=== PATIENT | male | born 1955 | race African-American/Black ===

== ENCOUNTER 2017-06-25 12:48 | Inpatient (IN) | payer OTHER ==
[2017-06-25 14:13] VITALS: BMI 28.1
--- NOTE | 2017-06-25 15:59 | HP ---
CIWA Score - CIWA Score Nausea/Vomitin-Int. Nausea w/Dry Heave (DIARRHEA) Muscle Tremors: 4-Moderate,w/Arms Extend Anxiety: 4-Mod. Anxious/Guarded Agitation: 3 Paroxysmal Sweats: 1-Minimal Palms Moist Orientation: 0-Oriented Tacttile Disturbances: 3-Moderate Itch/Numb/Burn Auditory Disturbances: 0-None Visual Disturbances: 0-None Headache: 0-None Present CIWA-Ar Total Score: 19 Admission ROS BHS - HPI Chief Complaint: DETOX TX FOR ALCOHOL DEPENDENCE Allergies/Adverse Reactions: Allergies Allergy/AdvReac Type Severity Reaction Status Date / Time tetracycline Allergy Severe Hives Verified 06/25/17 15:12 History of Present Illness: 62 Y/O AA/MALE WITH A HX OF ALCOHOL AND HEROIN, DEPENDENCE(OPIATE NEGATIVE TOXICOLOGY TODAY) SEEKING DETOX TX. PT STATES HE WENT TO THE [facility] ER ON 06/23/10 DUE TO OVERWHELMING WITHDRAWAL SX AND ADVICED TO COME IN TO DETOX. Exam Limitations: No Limitations - Ebola screening Have you traveled outside of the country in the last 21 days: No Have you had contact with anyone from an Ebola affected area: No Have you been sick,other than usual withdrawal symptoms: No Do you have a fever: No - Review of Systems Constitutional: Chills, Night Sweats, Changes in sleep, Unintentional Wgt. Loss EENT: reports: Blurred Vision (NEEDS READING GLASSES.), Tearing, Nose Congestion , Dental Problems (MISSING TEETH/CAVITIES) Respiratory: reports: No Symptoms reported Cardiac: reports: No Symptoms Reported GI: reports: Constipated, Diarrhea, Nausea, Poor Fluid Intake, Indigestion, Abdominal cramping : reports: Frequency Musculoskeletal: reports: Joint Pain, Muscle Pain Integumentary: reports: No Symptoms Reported Neuro: reports: Tremors, Dizziness Endocrine: reports: No Symptoms Reported Hematology: reports: Anemia (IN THE PAST.) Psychiatric: reports: Orientated x3, Anxious, Depressed Other Systems: Reviewed and Negative Patient History - Patient Medical History Hx Anemia: No Hx Asthma: No Hx Chronic Obstructive Pulmonary Disease (COPD): No Hx Cancer: No Hx Cardiac Disorders: No Hx Congestive Heart Failure: No Hx Hypertension: No Hx Hypercholesterolemia: No Hx Pacemaker: No HX Cerebrovascular Accident: No Hx Seizures: Yes (HX BLACKOUTS) Hx Dementia: No Hx Diabetes: No Hx Gastrointestinal Disorders: Yes (acid reflux; NO CURRENT MED) Hx Liver Disease: No Hx Genitourinary Disorders: No Hx Sexually Transmitted Disorders: No (DENIES) Hx Renal Disease (ESRD): No Hx Thyroid Disease: No Hx Human Immunodeficiency Virus (HIV): No (NEGATIVE HX) Hx Hepatitis C: No Hx Depression: Yes (ABILIFY IN THE PAST.) Hx Suicide Attempt: No (DENIES) Hx Bipolar Disorder: Yes Hx Schizophrenia: No - Patient Surgical History Past Surgical History: No Hx Neurologic Surgery: No Hx Cataract Extraction: No Hx Cardiac Surgery: No Hx Lung Surgery: No Hx Breast Surgery: No Hx Breast Biopsy: No Hx Abdominal Surgery: No Hx Appendectomy: No Hx Cholecystectomy: No Hx Genitourinary Surgery: No Hx Orthopedic Surgery: No Anesthesia Reaction: No - PPD History Previous Implant?: Yes Documented Results: Positive w/o proof Results: CXR TBD PPD to be Administered?: No - Reproductive History Patient is a Female of Child Bearing Age (11 -55 yrs old): No (MALE) Patient : (N/A) - Smoking Cessation Smoking history: Current every day smoker Have you smoked in the past 12 months: Yes Aproximately how many cigarettes per day: 10 Hx Chewing Tobacco Use: No Initiated information on smoking cessation: Yes 'Breaking Loose' booklet given: 06/25/17 - Substance & Tx. History Hx Alcohol Use: Yes (VODKA/GIN/BEER) Hx Substance Use: Yes (HEROIN) Substance Use Type: Alcohol, Heroin - Substances Abused Heroin Route: Inhalation Frequency: 3-6 times per week Amount used: 2-3 bags Age of first use: 40 Date of Last Use: 06/23/17 Alcohol-vodka/gin/beer Route: Oral Frequency: Daily Amount used: 1-1 1/2 pts./1-6 pk. (16 oz.) Age of first use: 14 Date of Last Use: 06/25/17 Family Disease History - Family Disease History Family Disease History: Diabetes: Mother (), Heart Disease: Mother Admission Physical Exam BHS - Vital Signs Vital Signs: Vital Signs - 24 hr 06/25/17 14:09 Temperature 97.8 F Pulse Rate 63 Respiratory 18 Rate Blood Pressure 127/85 - Physical General Appearance: Yes: Moderate Distress, Irritable, Anxious HEENTM: Yes: EOMI, Normocephalic, DANIEL, Pharynx Normal, Nasal Congestion Respiratory: Yes: Chest Non-Tender, Lungs Clear, Normal Breath Sounds, No Respiratory Distress Neck: Yes: No masses,lesions,Nodules, Supple, Trachea in good position Breast: Yes: Breast Exam Deferred Cardiology: Yes: Regular Rhythm, Regular Rate, S1, S2 Abdominal: Yes: Normal Bowel Sounds, Non Tender, Soft Genitourinary: Yes: Other (N/C) Back: Yes: Within Normal Limits Musculoskeletal: Yes: full range of Motion, Gait Steady Extremities: Yes: Normal Range of Motion, Non-Tender Neurological: Yes: gas singer II-XII NML intact, Fully Oriented, Alert, Motor Strength 5/5 Integumentary: Yes: Dry, Warm Lymphatic: Yes: Within Normal Limits - Diagnostic (1) Nicotine dependence Current Visit: Yes Status: Acute Qualifiers: Nicotine product type: cigarettes Substance use status: in withdrawal Qualified Code(s): F17.213 - Nicotine dependence, cigarettes, with withdrawal; F17.213 - Nicotine dependence, cigarettes, with withdrawal (2) Alcohol dependence with uncomplicated withdrawal Current Visit: Yes Status: Acute (3) GERD (gastroesophageal reflux disease) Current Visit: Yes Status: Inactive Qualifiers: Esophagitis presence: without esophagitis Qualified Code(s): K21.9 - Gastro-esophageal reflux disease without esophagitis; K21.9 - Gastro- esophageal reflux disease without esophagitis; K21.9 - Gastro-esophageal reflux disease without esophagitis Cleared for Admission [facility] - Detox or Rehab [facility] Level of Care: Medically Managed Detox Regimen/Protocol: Librium S Breath Alcohol Content Breath Alcohol Content: 0 Urine Drug Screen - Results Drug Screen Negative: Yes
[2017-06-25] MEDS ORDERED: ACETAMINOPHEN 325 MG TABLET (FP) PO PRN (16:38)
[2017-06-25] MEDS ORDERED: IBUPROFEN 400 MG TABLET (FP) PO PRN (16:38)
[2017-06-25] MEDS ORDERED: MAGNESIUM CITRATE 300 ML BOTTLE PO PRN (16:38)
[2017-06-25] MEDS ORDERED: LOPERAMIDE HCL 2 MG CAPSULE PO PRN (16:38)
[2017-06-25] MEDS ORDERED: NICOTINE POLACRILEX 2 MG GUM BC PRN (16:38)
[2017-06-25] MEDS ORDERED: MENTHOL/PHENOL 1 EACH UD MM PRN (16:38)
[2017-06-25] MEDS ORDERED: hydrOXYzine PAMOATE 50 MG CAPSULE (FP) PO PRN (16:38)
[2017-06-25] MEDS ORDERED: guaiFENesin/D-METHORPHAN HB 10 ML UNIT-DOSE CUPS PO PRN (16:38)
[2017-06-25] MEDS ORDERED: MAG HYDROX/AL HYDROX/SIMETH 30 ML UNIT-DOSE CUP PO PRN (16:38)
[2017-06-25] MEDS ORDERED: chlordiazePOXIDE HCL 25 MG CAPSULE PO PRN (16:38)
[2017-06-25] MEDS ORDERED: chlordiazePOXIDE HCL 25 MG CAPSULE PO ONE (18:15)
[2017-06-25] MEDS: NICOTINE 14 MG/24 HOURS TOPICAL PATCH TD SCH (18:33)
[2017-06-25 22:09] LABS: URINE APPEARANCE CLEAR; URINE BILIRUBIN NEGATIVE (NEGATIVE); URINE BLOOD NEGATIVE (NEGATIVE); URINE COLOR STRAW; URINE GLUCOSE (UA) NEGATIVE (NEGATIVE); URINE KETONE NEGATIVE (NEGATIVE); URINE NITRITE NEGATIVE (NEGATIVE); URINE PROTEIN NEGATIVE (NEGATIVE); URINE UROBILINOGEN NEGATIVE mg/dL (0.2-1.0)
[2017-06-25] MEDS: cloNIDine HCL 0.1 MG TABLET PO SCH (22:16)
[2017-06-25] MEDS: THIAMINE HCL 100 MG TABLET (FP) PO SCH (22:16)
[2017-06-25] MEDS: diphenhydrAMINE HCL 50 MG CAPSULE PO PRN (22:17)
[2017-06-25] MEDS: chlordiazePOXIDE HCL 25 MG CAPSULE PO SCH (22:17)
[2017-06-26] MEDS: chlordiazePOXIDE HCL 25 MG CAPSULE PO SCH ×4 (05:42→23:02)
[2017-06-26] MEDS: CYCLOBENZAPRINE HCL 10 MG TABLET (FP) PO PRN (05:46)
--- NOTE | 2017-06-26 09:39 | CONSULT ---
[facility] Psychiatric Consult - Data Date of interview: 06/26/17 Admission source: [facility] Identifying data: Mr Styles is a 62 years old single Black male, father of a 38 years old daughter, unemployed on SSI, domiciled Substance Abuse History: Reports history of alcohol and heroin use. Refere to addiction counselor's note for more information Medical History: Significant for Alcohol-related seizure, GERD, PPD+ and a history of Herniated Disc. Smokes 10 cigarettes daily Psychiatric History: Reports that his only psychiatric admission was in 2004 to [facility]. Claims he was diagnosed with Bipolar Disorder and discharged after 2 weeks. Reports seeing a psychiatrist at [facility] and he is prescribed Abilify. He is not sure of the dosage but stopped taking it last February-March when he relapsed. He request to take only medication for insomnia during this admission. Physical/Sexual Abuse/Trauma History: Denies history of verbal, physical or sexual abuse as well as DV relationship Additional Comment: Reports history of 2 previous arrests including one felony conviction. No parole/probation currently Mental Status Exam - Mental Status Exam Alert and Oriented to: Time, Place, Person Cognitive Function: Fair Patient Appearance: Well Groomed Mood: Hopeful, Euthymic Affect: Appropriate Patient Behavior: Cooperative Speech Pattern: Clear Voice Loudness: Normal Thought Process: Intact, Goal Oriented Thought Disorder: Not Present Hallucinations: Denies Suicidal Ideation: Denies Homicidal Ideation: Denies Insight/Judgement: Poor Sleep: Poorly Appetite: Good Muscle strength/Tone: Normal Gait/Station: Normal Psychiatric Findings - Problem List ([place] 1, 2,3) (1) Bipolar disorder Current Visit: No Status: Acute (2) Substance-induced sleep disorder Current Visit: Yes Status: Acute (3) Alcohol dependence with uncomplicated withdrawal Current Visit: Yes Status: Acute (4) Opioid dependence Current Visit: No Status: Chronic (5) Cocaine dependence Current Visit: No Status: Chronic (6) Nicotine dependence Current Visit: Yes Status: Acute Qualifiers: Nicotine product type: cigarettes Substance use status: in withdrawal Qualified Code(s): F17.213 - Nicotine dependence, cigarettes, with withdrawal; F17.213 - Nicotine dependence, cigarettes, with withdrawal (7) GERD (gastroesophageal reflux disease) Current Visit: Yes Status: Inactive Qualifiers: Esophagitis presence: without esophagitis Qualified Code(s): K21.9 - Gastro-esophageal reflux disease without esophagitis; K21.9 - Gastro- esophageal reflux disease without esophagitis; K21.9 - Gastro-esophageal reflux disease without esophagitis (8) PPD positive Current Visit: Yes Status: Acute (9) Alcohol related seizure Current Visit: Yes Status: Acute - Initial Treatment Plan Initial Treatment Plan: 1) Start Ambien 10 mg po HS prn for insomnia. Benefit vs Risks of medication discussed with patient and he agreed to try it. 2) Continue inpatient detoixification
[2017-06-26 10:01] LABS: MCH 28.4 pg (25.7-33.7); MCHC 32.6 g/dl (32.0-35.9); MEAN CELL VOLUME 87.3 fl (80-96); PLATELET COUNT 158 K/MM3 (134-434); RDW 15.2 % (11.9-15.9); WHITE BLOOD COUNT 3.6 K/mm3 (4.0-10.0)
--- NOTE | 2017-06-26 10:15 | PN ---
[facility] CIWA - CIWA Score Nausea/Vomitin-No Nausea/No Vomiting Muscle Tremors: 4-Moderate,w/Arms Extend Anxiety: 4-Mod. Anxious/Guarded Agitation: 4-Moderately Restless Paroxysmal Sweats: 1-Minimal Palms Moist Orientation: 0-Oriented Tacttile Disturbances: 3-Moderate Itch/Numb/Burn Auditory Disturbances: 0-None Visual Disturbances: 0-None Headache: 0-None Present CIWA-Ar Total Score: 16 BHS Progress Note (SOAP) Subjective: ANXIETY,SWEATS,FATIGUE. Objective: 06/26/17 10:15 Vital Signs Temperature 96.5 F L 06/26/17 09:37 Pulse Rate 55 L 06/26/17 09:37 Respiratory Rate 18 06/26/17 09:37 Blood Pressure 125/81 06/26/17 09:37 O2 Sat by Pulse Oximetry (%) Laboratory Last Values WBC 3.6 K/mm3 (4.0-10.0) L 06/26/17 07:00 RBC 4.50 M/mm3 (4.00-5.60) 06/26/17 07:00 Hgb 12.8 GM/dL (11.7-16.9) 06/26/17 07:00 Hct 39.3 % (35.4-49) 06/26/17 07:00 MCV 87.3 fl (80-96) 06/26/17 07:00 MCH 28.4 pg (25.7-33.7) 06/26/17 07:00 MCHC 32.6 g/dl (32.0-35.9) 06/26/17 07:00 RDW 15.2 % (11.9-15.9) D 06/26/17 07:00 Plt Count 158 K/MM3 (134-434) 06/26/17 07:00 MPV 10.0 fl (7.5-11.1) 06/26/17 07:00 Urine Color Straw 06/25/17 21:56 Urine Appearance Clear 06/25/17 21:56 Urine pH 6.0 (5.0-8.0) 06/25/17 21:56 Urine Protein Negative (NEGATIVE) 06/25/17 21:56 Urine Glucose (UA) Negative (NEGATIVE) 06/25/17 21:56 Urine Ketones Negative (NEGATIVE) 06/25/17 21:56 Urine Blood Negative (NEGATIVE) 06/25/17 21:56 Urine Nitrite Negative (NEGATIVE) 06/25/17 21:56 Urine Bilirubin Negative (NEGATIVE) 06/25/17 21:56 Urine Urobilinogen Negative mg/dL (0.2-1.0) 06/25/17 21:56 Assessment: 06/26/17 10:15 WITHDRAWAL SX Plan: CONTINUE DETOX
[2017-06-26 10:39] LABS: ALBUMIN 3.6 g/dl (3.4-5.0); ALK PHOS 59 U/L (45-117); ANION GAP 10 (8-16); BILIRUBIN,TOTAL 0.5 mg/dL (0.2-1.0); CALCIUM 8.5 mg/dL (8.5-10.1); CO2 26 mmol/L (21-32); CREATININE 1.1 mg/dL (0.7-1.3); GLUCOSE,RANDOM 105 mg/dL (74-106); SGOT/AST 15 U/L (15-37); SGPT/ALT 28 U/L (12-78); TOT PROT 6.7 g/dl (6.4-8.2)
[2017-06-26] MEDS: PRENATAL VITAMINS W/ FOLIC ACID TABLET (FP) PO SCH (10:43)
[2017-06-26] MEDS: NICOTINE 14 MG/24 HOURS TOPICAL PATCH TD SCH (10:43)
[2017-06-26] MEDS: cloNIDine HCL 0.1 MG TABLET PO SCH ×2 (10:43→23:02)
[2017-06-26 11:08] LABS: URINE LEUK ESTERASE Negative (NEGATIVE)
[2017-06-26 12:27] LABS: HIV 1 & 2 AB NEGATIVE; HIV 1 AGp24 NEGATIVE
--- NOTE | 2017-06-26 20:30 | EKG ---
Test Reason : Blood Pressure : / mmHG Vent. Rate : 066 BPM Atrial Rate : 066 BPM P-R Int : 144 ms QRS Dur : 092 ms QT Int : 428 ms P-R-T Axes : 072 066 063 degrees QTc Int : 448 ms NORMAL SINUS RHYTHM POSSIBLE LEFT ATRIAL ENLARGEMENT BORDERLINE ECG NO PREVIOUS ECGS AVAILABLE REPEAT EKG IF CLINICALLY INDICATED Confirmed by TAD NUÑEZ MD ([id number]) on 06/26/2017 8:30:20 PM Referred By: Confirmed By:TAD NUÑEZ MD
[2017-06-26] MEDS: THIAMINE HCL 100 MG TABLET (FP) PO SCH (23:02)
[2017-06-27] MEDS: chlordiazePOXIDE HCL 25 MG CAPSULE PO SCH ×3 (05:39→16:48)
[2017-06-27] MEDS: PRENATAL VITAMINS W/ FOLIC ACID TABLET (FP) PO SCH (10:50)
[2017-06-27] MEDS: cloNIDine HCL 0.1 MG TABLET PO SCH ×2 (10:50→22:10)
[2017-06-27] MEDS: NICOTINE 14 MG/24 HOURS TOPICAL PATCH TD SCH (10:51)
[2017-06-27] MEDS: MAGNESIUM HYDROX 2400MG/30ML ORAL SUSPENSION 30 ML CUP PO PRN ×2 (10:51→19:18)
[2017-06-27] MEDS ORDERED: ONDANSETRON *ODT* 4 MG TABLET SL PRN (12:20)
--- NOTE | 2017-06-27 13:10 | PN ---
[facility] CIWA - CIWA Score Nausea/Vomitin-No Nausea/No Vomiting Muscle Tremors: 4-Moderate,w/Arms Extend Anxiety: 3 Agitation: 2 Paroxysmal Sweats: 3 Orientation: 2-Disoriented Date<2 days Tacttile Disturbances: 2-Mild Itch/Numbness/Burn Auditory Disturbances: 2-Mild Harshness/Frighten Visual Disturbances: 0-None Headache: 0-None Present CIWA-Ar Total Score: 18 S Progress Note (SOAP) Subjective: Constipation, Sweating, Chills, Body Aches. Objective: PT. A & O X 2 (DISORIENTED ABOUT DAY / DATE). NO ACUTE DISTRESS. 06/27/17 13:11 Vital Signs Temperature 98.1 F 06/27/17 09:45 Pulse Rate 56 L 06/27/17 09:45 Respiratory Rate 18 06/27/17 09:45 Blood Pressure 119/77 06/27/17 09:45 O2 Sat by Pulse Oximetry (%) Laboratory Tests 06/25/17 06/26/17 06/26/17 21:56 07:00 07:00 WBC 3.6 L RBC 4.50 Hgb 12.8 Hct 39.3 MCV 87.3 MCH 28.4 MCHC 32.6 RDW 15.2 D Plt Count 158 MPV 10.0 Sodium 142 Potassium 3.6 Chloride 106 Carbon Dioxide 26 Anion Gap 10 BUN 7 D Creatinine 1.1 D Creat Clearance w eGFR > 60 Random Glucose 105 D Calcium 8.5 Total Bilirubin 0.5 D AST 15 ALT 28 D Alkaline Phosphatase 59 Total Protein 6.7 Albumin 3.6 Urine Color Straw Urine Appearance Clear Urine pH 6.0 Ur Specific [place] 1.015 Urine Protein Negative Urine Glucose (UA) Negative Urine Ketones Negative Urine Blood Negative Urine Nitrite Negative Urine Bilirubin Negative Urine Urobilinogen Negative Ur Leukocyte Esterase Negative RPR Titer HIV 1&2 Antibody Screen HIV P24 Antigen 06/26/17 06/26/17 07:00 08:00 WBC RBC Hgb Hct MCV MCH MCHC RDW Plt Count MPV Sodium Potassium Chloride Carbon Dioxide Anion Gap BUN Creatinine Creat Clearance w eGFR Random Glucose Calcium Total Bilirubin AST ALT Alkaline Phosphatase Total Protein Albumin Urine Color Urine Appearance Urine pH Ur Specific [place] Urine Protein Urine Glucose (UA) Urine Ketones Urine Blood Urine Nitrite Urine Bilirubin Urine Urobilinogen Ur Leukocyte Esterase RPR Titer Nonreactive HIV 1&2 Antibody Screen Negative HIV P24 Antigen Negative LABS NOTED. Assessment: 06/27/17 13:12 WITHDRAWAL SYMPTOMS. Plan: CONTINUE DETOX. PRN ZOFRAN SL FOR NAUSEA / VOMITING. PRN MOM FOR CONSTIPATION. INCREASE DAILY PO FLUID INTAKE.
[2017-06-27] MEDS: chlordiazePOXIDE 5 MG CAPSULE PO SCH (22:10)
[2017-06-27] MEDS: THIAMINE HCL 100 MG TABLET (FP) PO SCH (22:10)
[2017-06-27] MEDS: diphenhydrAMINE HCL 50 MG CAPSULE PO PRN (22:11)
[2017-06-28] MEDS: chlordiazePOXIDE 5 MG CAPSULE PO SCH ×3 (05:42→16:49)
[2017-06-28] MEDS: cloNIDine HCL 0.1 MG TABLET PO SCH ×2 (10:57→22:13)
[2017-06-28] MEDS: PRENATAL VITAMINS W/ FOLIC ACID TABLET (FP) PO SCH (10:57)
[2017-06-28] MEDS: NICOTINE 14 MG/24 HOURS TOPICAL PATCH TD SCH (10:57)
[2017-06-28] MEDS: DOCUSATE SODIUM 100 MG CAPSULE (FP) PO SCH ×2 (10:59→22:13)
[2017-06-28] MEDS: SENNOSIDES 8.6MG TABLET (FP) PO SCH ×2 (10:59→22:12)
--- NOTE | 2017-06-28 12:36 | PN ---
BHS Progress Note (SOAP) Subjective: Constipation, Body Aches, Sweating, H/A, Interrupted Sleep. Objective: PT. A & O X 3, OBSERVED AMBULATING ON UNIT. NO ACUTE DISTRESS. 06/28/17 12:35 Vital Signs Temperature 98.8 F 06/28/17 09:08 Pulse Rate 77 06/28/17 09:08 Respiratory Rate 20 06/28/17 09:08 Blood Pressure 119/83 06/28/17 09:08 O2 Sat by Pulse Oximetry (%) Laboratory Tests 06/25/17 06/26/17 06/26/17 21:56 07:00 07:00 WBC 3.6 L RBC 4.50 Hgb 12.8 Hct 39.3 MCV 87.3 MCH 28.4 MCHC 32.6 RDW 15.2 D Plt Count 158 MPV 10.0 Sodium 142 Potassium 3.6 Chloride 106 Carbon Dioxide 26 Anion Gap 10 BUN 7 D Creatinine 1.1 D Creat Clearance w eGFR > 60 Random Glucose 105 D Calcium 8.5 Total Bilirubin 0.5 D AST 15 ALT 28 D Alkaline Phosphatase 59 Total Protein 6.7 Albumin 3.6 Urine Color Straw Urine Appearance Clear Urine pH 6.0 Ur Specific [place] 1.015 Urine Protein Negative Urine Glucose (UA) Negative Urine Ketones Negative Urine Blood Negative Urine Nitrite Negative Urine Bilirubin Negative Urine Urobilinogen Negative Ur Leukocyte Esterase Negative RPR Titer HIV 1&2 Antibody Screen HIV P24 Antigen 06/26/17 06/26/17 07:00 08:00 WBC RBC Hgb Hct MCV MCH MCHC RDW Plt Count MPV Sodium Potassium Chloride Carbon Dioxide Anion Gap BUN Creatinine Creat Clearance w eGFR Random Glucose Calcium Total Bilirubin AST ALT Alkaline Phosphatase Total Protein Albumin Urine Color Urine Appearance Urine pH Ur Specific [place] Urine Protein Urine Glucose (UA) Urine Ketones Urine Blood Urine Nitrite Urine Bilirubin Urine Urobilinogen Ur Leukocyte Esterase RPR Titer Nonreactive HIV 1&2 Antibody Screen Negative HIV P24 Antigen Negative LABS NOTED. Assessment: 06/28/17 12:36 WITHDRAWAL SYMPTOMS. Plan: CONTINUE DETOX.
[2017-06-28] MEDS: P-EPHED 60MG/TRIPROLIDI 2.5MG TABLET PO PRN (15:12)
[2017-06-28] MEDS: chlordiazePOXIDE HCL 10 MG CAPSULE PO SCH (22:12)
[2017-06-28] MEDS: diphenhydrAMINE HCL 50 MG CAPSULE PO PRN (22:13)
[2017-06-28] MEDS: THIAMINE HCL 100 MG TABLET (FP) PO SCH (22:13)
[2017-06-29] MEDS: chlordiazePOXIDE HCL 10 MG CAPSULE PO SCH (05:23)
[2017-06-29] MEDS: CYCLOBENZAPRINE HCL 10 MG TABLET (FP) PO PRN (05:24)
[2017-06-29] MEDS: P-EPHED 60MG/TRIPROLIDI 2.5MG TABLET PO PRN (05:38)
[2017-06-29 06:08] VITALS: BP 138/86; PULSE 48; TEMP 98
--- NOTE | 2017-06-29 18:51 | DS ---
[facility] Detox Discharge Summary Admission Date: 06/25/17 Discharge Date: 06/29/17 - History Present History: Alcohol Dependence, Cocaine Dependence Additional Comments: PATIENT IS GOING TO OUTPATIENT DAY PROGRAM (UNABLE TO RECALL NAME AT THIS TIME) IN [facility]. PATIENT WAS DISCHARGED FROM DETOX UNIT IN STABLE MEDICAL CONDITION. Pertinent Past History: Nicotine Dependence, Bipolar Disorder, Depression, History of Seizues (ETOH- Related), History of Positive PPD, GERD. - Physical Exam Results Vital Signs: Vital Signs Temperature 98 F 06/29/17 06:07 Pulse Rate 48 L 06/29/17 06:07 Respiratory Rate 16 06/29/17 06:07 Blood Pressure 138/86 06/29/17 06:07 O2 Sat by Pulse Oximetry (%) Pertinent Admission Physical Exam Findings: WITHDRAWAL SYMPTOMS. Laboratory Tests 06/25/17 06/26/17 06/26/17 21:56 07:00 07:00 WBC 3.6 L RBC 4.50 Hgb 12.8 Hct 39.3 MCV 87.3 MCH 28.4 MCHC 32.6 RDW 15.2 D Plt Count 158 MPV 10.0 Sodium 142 Potassium 3.6 Chloride 106 Carbon Dioxide 26 Anion Gap 10 BUN 7 D Creatinine 1.1 D Creat Clearance w eGFR > 60 Random Glucose 105 D Calcium 8.5 Total Bilirubin 0.5 D AST 15 ALT 28 D Alkaline Phosphatase 59 Total Protein 6.7 Albumin 3.6 Urine Color Straw Urine Appearance Clear Urine pH 6.0 Ur Specific [place] 1.015 Urine Protein Negative Urine Glucose (UA) Negative Urine Ketones Negative Urine Blood Negative Urine Nitrite Negative Urine Bilirubin Negative Urine Urobilinogen Negative Ur Leukocyte Esterase Negative RPR Titer HIV 1&2 Antibody Screen HIV P24 Antigen 06/26/17 06/26/17 07:00 08:00 WBC RBC Hgb Hct MCV MCH MCHC RDW Plt Count MPV Sodium Potassium Chloride Carbon Dioxide Anion Gap BUN Creatinine Creat Clearance w eGFR Random Glucose Calcium Total Bilirubin AST ALT Alkaline Phosphatase Total Protein Albumin Urine Color Urine Appearance Urine pH Ur Specific [place] Urine Protein Urine Glucose (UA) Urine Ketones Urine Blood Urine Nitrite Urine Bilirubin Urine Urobilinogen Ur Leukocyte Esterase RPR Titer Nonreactive HIV 1&2 Antibody Screen Negative HIV P24 Antigen Negative LABS NOTED. - Treatment Hospital Course: Detox Protocol Followed, Detoxed Safely, Responded well, Discharged Condition Good Patient has Accepted a Rehab Referral to: NO. PT. GOING TO OUTPATIENT DAY PROGRAM IN [facility]. - Medication Discharge Medications: Ambulatory Orders Fluticasone Prop 0.05% Nasal [Flonase -] 1 spray NS DAILY #1 bot 06/29/17 - Diagnosis (1) Alcohol dependence with uncomplicated withdrawal Status: Acute (2) Nicotine dependence Status: Acute Qualifiers: Nicotine product type: cigarettes Substance use status: in withdrawal Qualified Code(s): F17.213 - Nicotine dependence, cigarettes, with withdrawal; F17.213 - Nicotine dependence, cigarettes, with withdrawal (3) Alcohol related seizure Status: Acute (4) Bipolar disorder Status: Acute Qualifiers: Active/Remission status: remission status unspecified Qualified Code (s): F31.9 - Bipolar disorder, unspecified; F31.9 - Bipolar disorder, unspecified; F31.9 - Bipolar disorder, unspecified; F31.9 - Bipolar disorder, unspecified (5) PPD positive Status: Chronic (6) Substance-induced sleep disorder Status: Acute (7) Cocaine dependence Status: Chronic Qualifiers: Substance use status: uncomplicated Qualified Code(s): F14.20 - Cocaine dependence, uncomplicated; F14.20 - Cocaine dependence, uncomplicated; F14.20 - Cocaine dependence, uncomplicated (8) Opioid dependence Status: Chronic Qualifiers: Substance use status: uncomplicated Qualified Code(s): F11.20 - Opioid dependence, uncomplicated; F11.20 - Opioid dependence, uncomplicated; F11.20 - Opioid dependence, uncomplicated (9) GERD (gastroesophageal reflux disease) Status: Chronic Qualifiers: Esophagitis presence: esophagitis presence not specified Qualified Code(s): K21.9 - Gastro-esophageal reflux disease without esophagitis; K21.9 - Gastro-esophageal reflux disease without esophagitis; K21.9 - Gastro-esophageal reflux disease without esophagitis - AMA Did Patient Leave Against Medical Advice: No
== END 2017-06-29 09:20 | disposition home or self-care (01) | DRG 773 ==
LOC: YASAS 12:48 → Y3N 17:39
PROVIDERS: ADMIT Internal Medicine; ATTEND Internal Medicine
PROC: HZ2ZZZZ Detoxification Services for Substance Abuse Treatment (ICD-10-PCS; principal; 2017-06-25)
DX: F10.230 Alcohol dependence with withdrawal, uncomplicated (principal); F11.20 Opioid dependence, uncomplicated; F14.20 Cocaine dependence, uncomplicated; F17.213 Nicotine dependence, cigarettes, with withdrawal; F31.9 Bipolar disorder, unspecified; F19.282 Other psychoactive substance dependence with psychoactive substance-induced sleep disorder; K21.9 Gastro-esophageal reflux disease without esophagitis; R76.11 Nonspecific reaction to tuberculin skin test without active tuberculosis; Z86.69 Personal history of other diseases of the nervous system and sense organs; Z88.1 Allergy status to other antibiotic agents
CPT/HCPCS: 36415; 71020-TC; 80053; 81003; 85027; 86593; 87389; 93005; 93010

== ENCOUNTER 2019-10-07 14:55 | Inpatient (IN) | payer OTHER ==
--- NOTE | 2019-10-07 17:04 | PDOC ---
History of Present Illness - General Chief Complaint: Chest Pain Stated Complaint: ABNORMAL EKG Time Seen by Provider: 10/07/19 16:36 - History of Present Illness Initial Comments: Mr. Styles is a 64M hx of polysubstance abuse, sent in today from [facility] for abnormal EKG findings. Reports that he took $120 worth of crack cocaine this morning and drank numerous beers and a pint of vodka before presenting to [facility] for detox. He is not reporting any complaints. Denies chest pain, denies shortness of breath. Denies abdominal pain. Denies diaphoresis. Denies headache. Denies dysuria or diarrhea. He has been using crack cocaine and alcohol numerous times intermittently throughout his life. Meds: none Past History - Past Medical History Allergies/Adverse Reactions: Allergies Allergy/AdvReac Type Severity Reaction Status Date / Time tetracycline Allergy Severe Hives Verified 10/07/19 16:03 Home Medications: Ambulatory Orders NK [No Known Home Medication] 10/07/19 Anemia: Yes Asthma: No Cancer: No Cardiac Disorders: No CVA: No COPD: No CHF: No Dementia: No Diabetes: No GI Disorders: No Disorders: No HTN: No Hypercholesterolemia: No Kidney Stones: No Liver Disease: No Psychiatric Problems: Yes Seizures: No Thyroid Disease: No - Surgical History Abdominal Surgery: No Appendectomy: No Cardiac Surgery: No Cholecystectomy: No Lung Surgery: No Neurologic Surgery: No Orthopedic Surgery: No - Reproductive History Testicular Surgery: No - Psycho Social/Smoking Cessation Hx Smoking History: Current every day smoker Have you smoked in the past 12 months: Yes Number of Cigarettes Smoked Daily: 10 Information on smoking cessation initiated: No 'Breaking Loose' booklet given: 10/07/19 Hx Alcohol Use: Yes Drug/Substance Use Hx: Yes Substance Use Type: Alcohol, Cocaine, Heroin Hx Substance Use Treatment: No Cardiac Specific PMH - Complaint Specific PMHX Pacemaker: No Review of Systems - Review of Systems Comments:: GENERAL/CONSTITUTIONAL: No fever or chills. No weakness._ HEAD, EYES, EARS, NOSE AND THROAT: No change in vision. No change in hearing. No sore throat._ CARDIOVASCULAR: No chest pain or shortness of breath_ RESPIRATORY: Denies cough, hemoptysis_ GASTROINTESTINAL: No nausea, vomiting, diarrhea or constipation._ GENITOURINARY: No dysuria, frequency, or change in urination._ MUSCULOSKELETAL: No joint or muscle swelling or pain. No neck or back pain._ SKIN: No rash_ NEUROLOGIC: No headache, vertigo, loss of consciousness, or change in strength/ sensation._ ENDOCRINE: No increased thirst. No abnormal weight change_ HEMATOLOGIC/LYMPHATIC: No anemia, easy bleeding, or history of blood clots._ ALLERGIC/IMMUNOLOGIC: No hives or skin allergy._ *Physical Exam - Vital Signs Last Vital Signs Temp Pulse Resp BP Pulse Ox 98.3 F 59 L 19 162/97 99 10/07/19 19:50 10/07/19 19:50 10/07/19 19:50 10/07/19 19:50 10/07/19 19:50 - Physical Exam GENERAL: Awake, alert, and oriented to person/place/time, in no acute distress_ HEAD: No signs of trauma, normoc ephalic, atraumatic _ EYES: PERRLA, EOMI, sclera anicteric, conjunctiva clear_ ENT: Hearing grossly normal, nares patent, oropharynx clear without exudates. No uvular deviation. Moist mucosa_ NECK: Normal ROM, supple, no lymphadenopathy, JVD, or masses_ LUNGS: No distress, speaks in full sentences, clear to auscultation bilaterally _ HEART: Regular rate and rhythm, normal S1 and S2, no murmurs appreciated, peripheral pulses normal and equal bilaterally._ ABDOMEN: Soft, nontender, normoactive bowel sounds. No guarding, no rebound. No masses_ EXTREMITIES: Normal inspection, Normal range of motion, no edema. No clubbing or cyanosis_ NEUROLOGICAL: Cranial nerves II through XII grossly intact. Normal speech, normal gait, no focal sensorimotor deficits _ SKIN: Warm, Dry, normal turgor, no rashes or lesions noted_ ED Treatment Course - LABORATORY CBC & Chemistry Diagram: 10/07/19 16:30 10/07/19 16:30 - ADDITIONAL ORDERS Additional order review: Laboratory Results 10/07/19 16:30 Sodium 136 Potassium 4.4 Chloride 104 Carbon Dioxide 27 Anion Gap 5 L BUN 13.3 Creatinine 1.0 Est GFR (CKD-EPI)AfAm 93.08 Est GFR (CKD-EPI)NonAf 80.31 Random Glucose 78 Calcium 8.7 Total Bilirubin 0.3 AST 43 H ALT 37 Alkaline Phosphatase 83 Troponin I < 0.02 Total Protein 7.3 Albumin 3.8 10/07/19 16:30 RBC 4.65 MCV 89.2 MCHC 33.7 RDW 14.3 MPV 8.8 D Neutrophils % 30.3 L Lymphocytes % 51.2 H Monocytes % 12.1 H Eosinophils % 6.0 H Basophils % 0.4 - Medications Given in the ED: ED Medications Discontinued Medications Generic Name Dose Route Start Last Admin Trade Name Izaiahq PRN Reason Stop Dose Admin Aspirin 325 mg 10/07/19 18:08 10/07/19 19:18 Ecotrin - PO 10/07/19 18:09 325 mg ONCE ONE Administration Medical Decision Making - Medical Decision Making 10/07/19 17:09 EKG shows NSR, 65 bpm, no ST elevation, QTc 451. Biphasic T waves and Wellens syndrome is seen on V2 and V3 on prior EKG this afternoon at [facility] at 13:28 with improvement on EKG done at bedside in the ED. 10/07/19 17:14 64M detox-ing from cocaine and ETOH presenting today for abnormal EKG findings. -cbc, cmp, trop -ekg, cxr 10/07/19 17:19 CXR shows no acute intra thoracic pathology. Labs reviewed. Laboratory Tests 10/07/19 10/07/19 16:30 16:30 WBC 2.6 L RBC 4.65 Hgb 14.0 Hct 41.5 MCV 89.2 MCH 30.0 MCHC 33.7 RDW 14.3 Plt Count 145 MPV 8.8 D Absolute Neuts (auto) 0.8 L Neutrophils % 30.3 L Lymphocytes % 51.2 H Monocytes % 12.1 H Eosinophils % 6.0 H Basophils % 0.4 Nucleated RBC % 0 Sodium 136 Potassium 4.4 Chloride 104 Carbon Dioxide 27 Anion Gap 5 L BUN 13.3 Creatinine 1.0 Est GFR (CKD-EPI)AfAm 93.08 Est GFR (CKD-EPI)NonAf 80.31 Random Glucose 78 Calcium 8.7 Total Bilirubin 0.3 AST 43 H ALT 37 Alkaline Phosphatase 83 Troponin I < 0.02 Total Protein 7.3 Albumin 3.8 10/07/19 21:05 D/w Dr. Anthony who accepts the patient for admission. Discharge - Discharge Information Problems reviewed: Yes Clinical Impression/Diagnosis: Abnormal EKG Condition: Stable - Admission Yes - Follow up/Referral - Patient Discharge Instructions - Post Discharge Activity
[2019-10-07 17:12] LABS: BASO % 0.4 % (0-2.0); HEMATOCRIT 41.5 % (35.4-49); LYMPH % 51.2 % (8-40); MCHC 33.7 g/dl (32.0-35.9); MEAN CELL VOLUME 89.2 fl (80-96); MEAN PLT VOLUME 8.8 fl (7.5-11.1); MONO % 12.1 % (3.8-10.2); NEUT % 30.3 % (42.8-82.8); PLATELET COUNT 145 K/MM3 (134-434); RBC 4.65 M/mm3 (4.00-5.60); RDW 14.3 % (11.9-15.9); WHITE BLOOD COUNT 2.6 K/mm3 (4.0-10.0)
[2019-10-07 18:02] LABS: ALBUMIN 3.8 g/dl (3.4-5.0); ALK PHOS 83 U/L (45-117); ANION GAP 5 MMOL/L (8-16); BILIRUBIN,TOTAL 0.3 mg/dL (0.2-1); BLOOD UREA NITROGEN 13.3 mg/dL (7-18); CALCIUM 8.7 mg/dL (8.5-10.1); CHLORIDE 104 mmol/L (98-107); CO2 27 mmol/L (21-32); GLUCOSE,RANDOM 78 mg/dL (74-106); POTASSIUM 4.4 mmol/L (3.5-5.1); SGOT/AST 43 U/L (15-37); SGPT/ALT 37 U/L (13-61); SODIUM 136 mmol/L (136-145); TOT PROT 7.3 g/dl (6.4-8.2)
[2019-10-07] MEDS ORDERED: ASPIRIN 325 MG ENTERIC COATED TABLET (FP) PO ONE (18:08)
--- NOTE | 2019-10-07 18:51 | PDOC ---
Documentation entered by Juan Ruiz SCRIBE, acting as scribe for Miriam Santos MD. Miriam Santos MD: This documentation has been prepared by the Joseph cordero Nirvannie, SCRIBE, under my direction and personally reviewed by me in its entirety. I confirm that the documentation accurately reflects all work, treatment, procedures, and medical decision making performed by me. Attending Attestation - Resident Resident Name: [email or web address] - ED Attending Attestation I have performed the following: I have examined & evaluated the patient, The case was reviewed & discussed with the resident, I agree w/resident's findings & plan, Exceptions are as noted - HPI HPI: 10/07/19 18:02 The patient is a 64 year old male, with a significant past medical history of HTN, Anemia, Depression, and Polysubstance Abuse (alcohol, cocaine, heroin), who presents to the emergency department via EMS from [facility] with abnormal EKG findings. As per patient, he drank an unknown amount of beer, a pint of vodka, and crack cocaine (approx $120 worth) then went to [facility] for detox. Per [facility] his EKG depicted showed abnormal t waves. He denies any recent fevers, chills, headache or dizziness. He denies any recent nausea, vomit, diarrhea or constipation. He denies any recent chest pain or shortness of breath. He denies any recent dysuria, frequency, urgency or hematuria. Allergies: Tetracycline Past surgical history: None reported. Social History: Polysubstance Abuse (alcohol, cocaine, heroin) - Physicial Exam PE: 10/07/19 18:48 Agree with resident exam - Medical Decision Making 10/07/19 18:49 64-year-old male with a history of polysubstance abuse presents the emergency department with abnormal EKG. patient used cocaine this morning. EKG consistent with Wellens EKG, concerning for vasospasm. Repeat EKG is stable in the emergency department. There was questionable report of chest pain, however patient currently denies. Will admit the patient for ACS work-up versus possible vasospasm. Heart Score/ECG Review #1 10/07/19 18:49 Twelve-lead EKG was performed and reviewed by me. Normal sinus rhythm, rate 65. Normal axis and intervals. No ST elevations. Deep biphasic T waves in V2 and V3 which are new compared to EKG from 2017.
[2019-10-07] MEDS ORDERED: ASPIRIN COATED 81 MG TABLET.EC ONE (19:10)
[2019-10-07] MEDS ORDERED: FOLIC ACID INJECTION - 1 MG, THIAMINE HCL 100 MG, MULTIVIT INJECTION ADULT 10 ML in SOD... IVPB ONE (21:07)
[2019-10-07] MEDS ORDERED: chlordiazePOXIDE HCL 10 MG CAPSULE PO PRN (21:08)
--- NOTE | 2019-10-07 21:19 | PN ---
Teaching Attending Note Name of Resident: Bin Anthony ATTENDING PHYSICIAN STATEMENT I saw and evaluated the patient. I reviewed the resident's note and discussed the case with the resident. I agree with the resident's findings and plan as documented. SUBJECTIVE: This is a 64 year old man with a history of bipolar disorder, substance abuse (alcohol and cocaine), GERD, chronic back pain secondary to herniated disc who was sent to the ED from [facility] because of an abnormal EKG. He denies chest pain, palpitations, SOB. He complains of body aches, chills , and cough productive of green/yellow sputum. His last drink was this morning. He last used crack this morning. OBJECTIVE: Vital Signs Period Temp Pulse Resp BP Sys/Lei Pulse Ox Last 24 Hr 98.2 F-98.3 F 59-68 17-19 157-162/97-107 99-100 HEART: S1S2, RRR LUNGS: Clear ABDOMEN: Soft, non-tender, non-distended, normal BS EXTREMITIES: No edema Laboratory Tests 10/07/19 10/07/19 16:30 16:30 WBC 2.6 L RBC 4.65 Hgb 14.0 Hct 41.5 MCV 89.2 MCH 30.0 MCHC 33.7 RDW 14.3 Plt Count 145 MPV 8.8 D Absolute Neuts (auto) 0.8 L Neutrophils % 30.3 L Lymphocytes % 51.2 H Monocytes % 12.1 H Eosinophils % 6.0 H Basophils % 0.4 Nucleated RBC % 0 Sodium 136 Potassium 4.4 Chloride 104 Carbon Dioxide 27 Anion Gap 5 L BUN 13.3 Creatinine 1.0 Est GFR (CKD-EPI)AfAm 93.08 Est GFR (CKD-EPI)NonAf 80.31 Random Glucose 78 Calcium 8.7 Total Bilirubin 0.3 AST 43 H ALT 37 Alkaline Phosphatase 83 Troponin I < 0.02 Total Protein 7.3 Albumin 3.8 Home Medications Medication Instructions Recorded NK [No Known Home Medication] 10/07/19 ASSESSMENT AND PLAN: This is a 64 year old man with a history of bipolar disorder, substance abuse ( alcohol and cocaine), GERD, chronic back pain secondary to herniated disc who was sent to the ED from [facility] because of an abnormal EKG with chills, cough , and body aches. 1. Abnormal EKG - EKG shows biphasic T waves in V1-V4 - Patient is asymptomatic - Troponin negative x 1 - Admit to telemetry - Serial troponins and EKGs - Start aspirin, Lipitor - Will hold beta delio secondary to cocaine use - Echocardiogram - Cardiology consult 2. Possible viral syndrome - Has productive cough, chills, myalgias and thinks he has had fevers - Acetaminophen, ibuprofen as needed - Check influenza 3. Neutropenia - Has chronic leukopenia - Possibly secondary to alcohol-induced bone marrow suppression, viral syndrome 4. Continuous alcohol dependence - Thiamine, folic acid, multivitamin - Start Librium detox 5. Cocaine abuse 6. Bipolar disorder 7. GERD 8. Chronic low back pain secondary to herniated disc - Uses ibuprofen as needed
[2019-10-07] MEDS ORDERED: chlordiazePOXIDE HCL 25 MG CAPSULE ONE (21:56)
[2019-10-07] MEDS: chlordiazePOXIDE HCL 25 MG CAPSULE PO SCH (21:58)
--- NOTE | 2019-10-07 23:21 | HP ---
CHIEF COMPLAINT: brought from [facility] for EKG abnormalities PCP: none HISTORY OF PRESENT ILLNESS: Bo Styles is a 64 year old male with a past medical history of polysubstance abuse (alcohol, cocaine), GERD, depression, bipolar, disc herniation, who presents from [facility] for EKG abnormalities noting biphasic T waves in V2, V3. Patient states that his only complaints are chronic back pain due to a slipped disc, myalgias, pain on his left toe (stated he had a previous fracture in that area), cough, and intermittent chills. Notes the cough is productive of green/yellow phlegm and has been present for greater than a week. He denies chest pain or pressure, shortness of breath, diaphoresis, back pain, abdominal pain, n/v/c/d, neck pain, headaches, visual changes, dizziness, lightheadedness. Denies history of cardiac issues. Stated that his last crack cocaine use was the morning of admission prior to presenting to [facility]. Additionally, denies dysuria, hematuria, frequency, urgency. Denies sick contacts or recent travel. ER course was notable for: (1) WBC 2.6, neut 0.8, AST 43 (2) EKG at this facility noting inverted p waves in V1, V2, inverted T waves in V1, V2, biphasic T wave in V3, no other ST segment changes, Qtc 451 (3) troponins negative x2 (4) CXR with no acute pathology Recent Travel: denies PAST MEDICAL HISTORY: as above PAST SURGICAL HISTORY: denies Social History: Smoking: endorses smoking 1/2 ppd for "forever" Alcohol: 1/2 to 1 pint of vodka daily, 6-16oz beers daily Drugs: inhalation use of crack cocaine 120$ worth, occasional marijuana and heroin use Not currently working. Allergies tetracycline Allergy (Severe, Verified 10/07/19 16:03) Hives HOME MEDICATIONS: Home Medications Medication Instructions Recorded NK [No Known Home Medication] 10/07/19 REVIEW OF SYSTEMS CONSTITUTIONAL: chills Absent: fever, diaphoresis, generalized weakness, malaise, loss of appetite, weight change HEENT: nasal congestion Absent: rhinorrhea, throat pain, throat swelling, difficulty swallowing, visual changes CARDIOVASCULAR: Absent: chest pain, syncope, palpitations, irregular heart rate, lightheadedness , peripheral edema RESPIRATORY: cough productive of yellow/green phlegm Absent: shortness of breath, dyspnea with exertion, orthopnea, wheezing, stridor, hemoptysis GASTROINTESTINAL: Absent: abdominal pain, abdominal distension, nausea, vomiting, diarrhea, constipation, melena, hematochezia GENITOURINARY: Absent: dysuria, frequency, urgency, hesitancy, hematuria, flank pain MUSCULOSKELETAL: myalgia, back pain, L 4th toe pain Absent: arthralgia, joint swelling, neck pain SKIN: Absent: rash, itching, pallor HEMATOLOGIC/IMMUNOLOGIC: Absent: easy bleeding, easy bruising, lymphadenopathy, frequent infections ENDOCRINE: Absent: unexplained weight gain, unexplained weight loss, heat intolerance, cold intolerance NEUROLOGIC: Absent: headache, focal weakness or paresthesias, dizziness, unsteady gait, seizure, mental status changes, bladder or bowel incontinence PSYCHIATRIC: Absent: anxiety, depression, suicidal or homicidal ideation, hallucinations. PHYSICAL EXAMINATION Vital Signs - 24 hr 10/07/19 10/07/19 15:52 19:50 Temperature 98.2 F 98.3 F Pulse Rate 68 Pulse Rate [ 59 L Apical] Respiratory 17 19 Rate Blood Pressure 157/107 H Blood Pressure 162/97 [Left Arm] O2 Sat by Pulse 100 99 Oximetry (%) GENERAL: Awake, alert, and fully oriented, in no acute distress. HEAD: Normal with no signs of trauma. EYES: Pupils equal, round and reactive to light, extraocular movements intact, sclera anicteric, conjunctiva clear. EARS, NOSE, THROAT: Oropharynx clear without exudates. Moist mucous membranes. NECK: Normal range of motion, supple without lymphadenopathy, JVD. LUNGS: Breath sounds equal, clear to auscultation bilaterally. No wheezes, and no crackles. No accessory muscle use. HEART: Regular rate and rhythm, normal S1 and S2 with prominent systolic ejection murmur at the R 5th intercostal space at the sternal junction ABDOMEN: Soft, nontender, not distended, normoactive bowel sounds, no guarding, no rebound, no masses. MUSCULOSKELETAL: Normal range of motion at all joints. Tenderness to palpation of the L 4th toe. UPPER EXTREMITIES: 2+ pulses, warm, well-perfused. No cyanosis. No clubbing. No peripheral edema. LOWER EXTREMITIES: 2+ pulses, warm, well-perfused. No calf tenderness. No peripheral edema. NEUROLOGICAL: Cranial nerves II-XII intact. 5/5 muscle strength upper and lower extremities bilaterally. PSYCHIATRIC: Cooperative. Good eye contact. Upset mood. SKIN: Warm, dry, normal turgor, no rashes or lesions noted, normal capillary refill. Laboratory Results - last 24 hr 10/07/19 10/07/19 10/07/19 16:30 16:30 22:10 WBC 2.6 L RBC 4.65 Hgb 14.0 Hct 41.5 MCV 89.2 MCH 30.0 MCHC 33.7 RDW 14.3 Plt Count 145 MPV 8.8 D Absolute Neuts (auto) 0.8 L Neutrophils % 30.3 L Lymphocytes % 51.2 H Monocytes % 12.1 H Eosinophils % 6.0 H Basophils % 0.4 Nucleated RBC % 0 Sodium 136 Potassium 4.4 Chloride 104 Carbon Dioxide 27 Anion Gap 5 L BUN 13.3 Creatinine 1.0 Est GFR (CKD-EPI)AfAm 93.08 Est GFR (CKD-EPI)NonAf 80.31 Random Glucose 78 Calcium 8.7 Total Bilirubin 0.3 AST 43 H ALT 37 Alkaline Phosphatase 83 Creatine Kinase 570 H Troponin I < 0.02 < 0.02 Total Protein 7.3 Albumin 3.8 ASSESSMENT/PLAN: Bo Styles is a 64 year old male with a past medical history of polysubstance abuse (alcohol, cocaine), GERD, depression, bipolar, disc herniation admitted for EKG changes suggestive of ischemia. EKG Changes - persistent EKG changes suggestive of anterior ischemia involving LAD in setting of cocaine use - patient with no chest pain troponins negative x2, obtain third with morning labs - HEART SCORE 4 (EKG changes, age, risk factor smoking) - cardiology consulted, spoken with Dr. Guido, and will see patient in the morning making recommendation as below - aspirin 81mg - atorvastatin 80mg - lisinopril 10mg for blood pressure - avoid beta blockers in setting of cocaine use - Lovenox 1mg/kg bid for total of 90mg bid - echo ordered - cardiac monitoring - lipid profile, A1c, TSH - unlikely stress test as per cardiology Alcohol Abuse - CIWA currently 7 - Librium protocol started - seizure, fall precautions - banana bag - MVI, thiamine, folate - addiction medicine consulted Leukopenia with low neutrophil count - likely in setting of alcohol abuse - flu swab - HIV test ordered - continue to monitor, no active infections Elevated AST - likely in setting of alcohol abuse, continue to monitor L foot pain - x-ray ordered, no fracture as per resident and ED staff read, await final read - non-weight bearing on L foot DVT PPx - Lovenox 90mg bid in setting of EKG changes FEN - banana bag x1 - continue to monitor electrolytes and replete as necessary - sodium controlled diet Dispo - admit to telemetry Family Medical History Family History: Denies Visit type - Emergency Visit Emergency Visit: Yes ED Registration Date: 10/07/19 Care time: The patient presented to the Emergency Department on the above date and was hospitalized for further evaluation of their emergent condition. - New Patient This patient is new to me today: Yes Date on this admission: 10/08/19 - Critical Care Critical Care patient: No
[2019-10-08] MEDS ORDERED: IBUPROFEN 400 MG TABLET (FP) PO ONE (02:20)
[2019-10-08] MEDS: IBUPROFEN 400 MG TABLET (FP) PO PRN ×2 (02:22→20:34)
[2019-10-08] MEDS ORDERED: chlordiazePOXIDE HCL 25 MG CAPSULE ONE ×2 (05:56→13:06)
[2019-10-08] MEDS: chlordiazePOXIDE HCL 25 MG CAPSULE PO SCH ×3 (05:59→21:47)
[2019-10-08 07:50] LABS: BASO % 0.4 % (0-2.0); EOS % 6.6 % (0-4.5); HEMATOCRIT 38.3 % (35.4-49); HEMOGLOBIN 13.1 GM/dL (11.7-16.9); LYMPH % 57.7 % (8-40); MCH 30.5 pg (25.7-33.7); MCHC 34.3 g/dl (32.0-35.9); MEAN CELL VOLUME 88.9 fl (80-96); MEAN PLT VOLUME 8.5 fl (7.5-11.1); MONO % 13.5 % (3.8-10.2); NEUT % 21.8 % (42.8-82.8); PLATELET COUNT 126 K/MM3 (134-434); RBC 4.31 M/mm3 (4.00-5.60); RDW 14.1 % (11.9-15.9)
[2019-10-08 08:17] LABS: ALBUMIN 3.2 g/dl (3.4-5.0); BILIRUBIN,TOTAL 0.5 mg/dL (0.2-1); BLOOD UREA NITROGEN 12.7 mg/dL (7-18); CALCIUM 8.3 mg/dL (8.5-10.1); CREATININE 0.9 mg/dL (0.55-1.3); MAGNESIUM 2.4 mg/dL (1.8-2.4); POTASSIUM 4.2 mmol/L (3.5-5.1); TOT PROT 6.4 g/dl (6.4-8.2)
[2019-10-08 08:23] LABS: INR 0.92 (0.83-1.09); PROTHROMBIN TIME (PATIENT) 10.9 SEC (9.7-13.0)
[2019-10-08 08:26] LABS: ACTIVATED PTT 28.7 SECONDS (25.2-36.5)
[2019-10-08] MEDS ORDERED: LISINOPRIL 10 MG TABLET (FP) PO SCH (10:00)
[2019-10-08] MEDS ORDERED: ENOXAPARIN NA (PORCINE) 100 MG/1 ML DISP.SYRIN SQ SCH (10:00)
[2019-10-08] MEDS ORDERED: ENOXAPARIN NA (PORCINE) 40 MG/0.4 ML DISP.SYRIN SQ SCH (10:00)
[2019-10-08] MEDS: ASPIRIN 81 MG CHEWABLE TABLETS PO SCH (10:40)
[2019-10-08] MEDS: FOLIC ACID 1 MG TABLET (FP) PO SCH (10:40)
[2019-10-08] MEDS: ENOXAPARIN NA (PORCINE) 100 MG/1 ML DISP.SYRIN SQ SCH ×2 (10:40→21:47)
[2019-10-08] MEDS: LISINOPRIL 10 MG TABLET (FP) PO SCH (10:40)
[2019-10-08] MEDS: THIAMINE HCL 100 MG TABLET (FP) PO SCH (10:40)
[2019-10-08] MEDS ORDERED: ASPIRIN 81 MG CHEWABLE TABLETS ONE (10:45)
[2019-10-08] MEDS ORDERED: FOLIC ACID 1 MG TABLET (FP) ONE (10:45)
[2019-10-08] MEDS ORDERED: LISINOPRIL 5 MG TABLET (FP) ONE (10:45)
[2019-10-08] MEDS ORDERED: THIAMINE HCL 100 MG TABLET (FP) ONE (10:45)
[2019-10-08] MEDS: MULTIVITAMINS (DAILY MVI) TABLET (FP) PO SCH (11:03)
--- NOTE | 2019-10-08 11:23 | ECHO ---
Name: HUGHESSERGEY Exam:Adult Echocardiogram Study Date: 10/08/2019 09:14 AM Age: 64 yrs Reason For Study: NEW ONSET EKG CHANGES Height: 75 in Weight: 200 lb BSA: 2.2 m2 MMode/2D Measurements & Calculations IVSd: 1.2 cm Ao root diam: 3.5 cm LVIDd: 3.9 cm LA dimension: 3.4 cm LVIDs: 2.7 cm ACS: 2.4 cm LVPWd: 1.3 cm EDV(Teich): 67.6 ml LVOT diam: 2.0 cm ESV(Teich): 27.1 ml LAV (MOD-bp): 76.0 ml TAPSE: 2.4 cm RV S Tariq: 17.6 cm/sec Doppler Measurements & Calculations MV E max tariq: 55.8 cm/sec Ao V2 max: 129.0 cm/sec MV A max tariq: 75.5 cm/sec Ao max P.7 mmHg MV E/A: 0.74 Ao V2 mean: 86.4 cm/sec MV dec time: 0.20 sec Ao mean P.5 mmHg Ao V2 VTI: 24.9 cm FELIX(I,D): 2.9 cm2 FELIX(V,D): 2.5 cm2 LV V1 max P.9 mmHg MR max tariq: 521.2 cm/sec LV V1 mean P.8 mmHg MR max P.7 mmHg LV V1 max: 98.7 cm/sec LV V1 mean: 62.5 cm/sec LV V1 VTI: 22.0 cm SV(LVOT): 71.2 ml TR max tariq: 225.3 cm/sec TR max P.3 mmHg PA V2 max: 103.2 cm/sec PI end-d tariq: 141.2 cm/sec PA max P.3 mmHg Med Peak E' Tariq: 6.5 cm/sec Pulm Sys Tariq: 54.3 cm/sec Med E/e': 8.5 Pulm Lei Tariq: 39.5 cm/sec Lat Peak E' Tariq: 7.4 cm/sec Pulm S/D: 1.4 Lat E/e': 7.5 Procedure A complete two-dimensional transthoracic echocardiogram was performed (2D, M-mode, Doppler and color flow Doppler). Left Ventricle The left ventricular size, thickness and function are normal. Ejection Fraction = 60%. E/A reversal c onsistent with but not diagnostic of poor LV compliance. The left ventricular wall motion is normal. Right Ventricle The right ventricle is normal in size and function. Atria Normal left and right atrial size and function. Mitral Valve The mitral valve is normal in structure and function. There is trace to mild mitral regurgitation. Tricuspid Valve The tricuspid valve is normal in structure and function. There is trace tricuspid regurgitation. Righ t ventricular systolic pressure is 25 mmhg. Assuming the RA pressure is 5 mmHg. Aortic Valve The aortic valve is normal in structure and function. Pulmonic Valve The pulmonic valve is normal in structure and function. Trace to mild pulmonic valvular regurgitation . Great Vessels The aortic root is normal size. Pericardium/Pleura There is no pericardial effusion. There is no pleural effusion. Interpretation Summary The left ventricular size, thickness and function are normal Ejection Fraction = 60%. There is trace to mild mitral regurgitation. There is trace tricuspid regurgitation. Right ventricular systolic pressure is 25 mmhg. Trace to mild pulmonic valvular regurgitation. MD Kj Russo 10/08/2019 11:22 AM
--- NOTE | 2019-10-08 11:31 | CON.CARD ---
Consult Consult Specialty:: Cardiology Reason for Consultation:: new ekg changes - History of Present Illness History of Present Illness: Bo Styles is a 64 year old male with a past medical history of polysubstance abuse (alcohol, cocaine), GERD, depression, bipolar, disc herniation, who presents from [facility] for EKG abnormalities noting biphasic T waves in V2, V3. Patient states that his only complaints are chronic back pain due to a slipped disc, myalgias, pain on his left toe (stated he had a previous fracture in that area), cough, and intermittent chills. Notes the cough is productive of green/yellow phlegm and has been present for greater than a week. He denies chest pain or pressure, shortness of breath, diaphoresis, back pain, abdominal pain, n/v/c/d, neck pain, headaches, visual changes, dizziness, lightheadedness. Denies history of cardiac issues. Stated that his last crack cocaine use was the morning of admission prior to presenting to [facility]. Additionally, denies dysuria, hematuria, frequency, urgency. Denies sick contacts or recent travel. ER course was notable for: (1) WBC 2.6, neut 0.8, AST 43 (2) EKG at this facility noting inverted p waves in V1, V2, inverted T waves in V1, V2, biphasic T wave in V3, no other ST segment changes, Qtc 451 (3) troponins negative x2 (4) CXR with no acute pathology - History Source History Provided By: Patient, Medical Record - Past Medical History Cardio/Vascular: Yes: HTN Psych: Yes: Addictions, Depression Musculoskeletal: Yes: Other (slip disc lower back.) - Past Surgical History Past Surgical History: Yes: None - Alcohol/Substance Use Hx Alcohol Use: Yes History of Substance Use: reports: Cocaine Date of Last Use: 10/07/19 - Smoking History Smoking history: Current every day smoker Have you smoked in the past 12 months: Yes Aproximately how many cigarettes per day: 10 - Social History History of Recent Travel: No Home Medications - Allergies Allergies/Adverse Reactions: Allergies Allergy/AdvReac Type Severity Reaction Status Date / Time tetracycline Allergy Severe Hives Verified 10/07/19 16:03 - Home Medications Home Medications: Ambulatory Orders NK [No Known Home Medication] 10/07/19 Review of Systems - Review of Systems Constitutional: reports: No Symptoms Eyes: reports: No Symptoms HENT: reports: No Symptoms Neck: reports: No Symptoms Cardiovascular: reports: No Symptoms Respiratory: reports: No Symptoms Gastrointestinal: reports: No Symptoms Genitourinary: reports: No Symptoms Breasts: reports: No Symptoms Reported Musculoskeletal: reports: No Symptoms Integumentary: reports: No Symptoms Neurological: reports: No Symptoms Endocrine: reports: No Symptoms Hematology/Lymphatic: reports: No Symptoms Psychiatric: reports: No Symptoms Vital Signs: Vital Signs Temperature 98.3 F 10/08/19 10:41 Pulse Rate 65 10/08/19 10:41 Respiratory Rate 14 10/08/19 10:41 Blood Pressure 128/54 L 10/08/19 10:41 O2 Sat by Pulse Oximetry (%) 100 10/08/19 10:41 Constitutional: Yes: Well Nourished, No Distress, Calm Eyes: Yes: WNL, Conjunctiva Clear, EOM Intact HENT: Yes: WNL, Atraumatic, Normocephalic Neck: Yes: WNL, Supple, Trachea Midline Respiratory: Yes: WNL, Regular, CTA Bilaterally Gastrointestinal: Yes: WNL, Normal Bowel Sounds Renal/: Yes: WNL Cardiovascular: Yes: WNL, Regular Rate and Rhythm Musculoskeletal: Yes: WNL Extremities: Yes: WNL Integumentary: Yes: WNL Neurological: Yes: WNL, Alert, Oriented ...Motor Strength: WNL Psychiatric: Yes: WNL, Alert, Oriented - Other Data Labs, Other Data: CBC, BMP 10/08/19 06:50 10/08/19 06:50 INR, PTT INR 0.92 (0.83-1.09) 10/08/19 06:50 Troponin, BNP 10/07/19 10/07/19 10/08/19 16:30 22:10 06:50 Troponin I < 0.02 < 0.02 0.02 Troponin, BNP 10/07/19 10/07/19 10/08/19 16:30 22:10 06:50 Troponin I < 0.02 < 0.02 0.02 Imaging - Results Chest X-ray: Image Reviewed (no i/e) EKG: Image Reviewed (sr t wave inversions anteriorly New frop prior ekg) Other: Report Reviewed (ECHO nl ef) Problem List - Problems (1) Alcohol dependence with uncomplicated withdrawal Code(s): F10.230 - ALCOHOL DEPENDENCE WITH WITHDRAWAL, UNCOMPLICATED (2) Cocaine dependence Code(s): F14.20 - COCAINE DEPENDENCE, UNCOMPLICATED Qualifiers: Substance use status: uncomplicated Qualified Code(s): F14.20 - Cocaine dependence, uncomplicated (3) Nicotine dependence Code(s): F17.200 - NICOTINE DEPENDENCE, UNSPECIFIED, UNCOMPLICATED Qualifiers: Nicotine product type: cigarettes Substance use status: uncomplicated Qualified Code(s): F17.210 - Nicotine dependence, cigarettes, uncomplicated (4) Bipolar disorder Code(s): F31.9 - BIPOLAR DISORDER, UNSPECIFIED Qualifiers: Active/Remission status: remission status unspecified Qualified Code(s): F31.9 - Bipolar disorder, unspecified (5) Substance-induced sleep disorder Code(s): F19.982 - OTH PSYCHOACTIVE SUBSTANCE USE, UNSP W SLEEP DISORDER (6) PPD positive Code(s): R76.11 - NONSPECIFIC REACTION TO SKIN TEST W/O ACTIVE TUBERCULOSIS (7) GERD (gastroesophageal reflux disease) Code(s): K21.9 - GASTRO-ESOPHAGEAL REFLUX DISEASE WITHOUT ESOPHAGITIS Qualifiers: Esophagitis presence: without esophagitis Qualified Code(s): K21.9 - Gastro -esophageal reflux disease without esophagitis Assessment/Plan 64 year old male with a past medical history of polysubstance abuse (alcohol, cocaine), GERD, depression, bipolar, disc herniation, who presents from [facility] for EKG abnormalities noting biphasic T waves in V2, V3. Patient states that his only complaints are chronic back pain due to a slipped disc, myalgias, pain on his left toe (stated he had a previous fracture in that area), cough, and intermittent chills. New anterior deepT wave inversion - tnis negative echo nl ef normal wall motion Plan; Telemetry Exercise MIBI stress test Lovenox BID 1 mg /kg x 24-48hrs asa 81 qd no beta blockers due to cocaine use
--- NOTE | 2019-10-08 11:37 | EKG ---
Test Reason : Blood Pressure : / mmHG Vent. Rate : 059 BPM Atrial Rate : 059 BPM P-R Int : 140 ms QRS Dur : 090 ms QT Int : 456 ms P-R-T Axes : 077 074 074 degrees QTc Int : 451 ms SINUS BRADYCARDIA T WAVE ABNORMALITY, CONSIDER ANTERIOR ISCHEMIA ABNORMAL ECG WHEN COMPARED WITH ECG OF 07-OCT-2019 13:40, NO SIGNIFICANT CHANGE WAS FOUND Confirmed by Kj Russo MD ([id number]) on 10/08/2019 11:37:15 AM Referred By: Confirmed By:Kj Russo MD
--- NOTE | 2019-10-08 11:38 | EKG ---
Test Reason : Blood Pressure : / mmHG Vent. Rate : 065 BPM Atrial Rate : 065 BPM P-R Int : 132 ms QRS Dur : 088 ms QT Int : 434 ms P-R-T Axes : 078 072 068 degrees QTc Int : 451 ms NORMAL SINUS RHYTHM POSSIBLE LEFT ATRIAL ENLARGEMENT T WAVE ABNORMALITY, CONSIDER ANTERIOR ISCHEMIA ABNORMAL ECG WHEN COMPARED WITH ECG OF 07-OCT-2019 13:40, NO SIGNIFICANT CHANGE WAS FOUND Confirmed by Kj Russo MD ([id number]) on 10/08/2019 11:38:13 AM Referred By: Confirmed By:Kj Russo MD
--- NOTE | 2019-10-08 18:26 | PN ---
Physical Exam: SUBJECTIVE: Patient seen and examined NAEON Denies CP, palpitations, SOB, exertional dyspnea. Expressing desire to cw detox OBJECTIVE: Vital Signs Period Temp Pulse Resp BP Sys/Lei Pulse Ox Last 24 Hr 98.3 F-98.3 F 59-65 14-20 128-162/54-97 99-100 GENERAL: The patient is awake, alert, and fully oriented, in no acute distress. HEAD: NC/AT. No temporal wasting EYES: extraocular movements intact, sclera anicteric, conjunctiva clear. No ptosis. ENT: Ears normal, nares patent, oropharynx clear without exudates, moist mucous membranes. NECK: Trachea midline, full range of motion, supple. LUNGS: Breath sounds equal, clear to auscultation bilaterally, no wheezes, no crackles, no accessory muscle use. Breathing RA HEART: Regular rate and rhythm, S1, S2 without murmur, rub or gallop. ABDOMEN: Soft, nontender, nondistended, normoactive bowel sounds, no guarding, no rebound. EXTREMITIES: 2+ pulses, warm, well-perfused, no edema. NEUROLOGICAL: Moving all limbs spontaneously and purposefully. Normal speech, normal gait. Mild tremors with arms outstretched SKIN: Warm, dry, normal turgor, no rashes or lesions noted Laboratory Results - last 24 hr 10/07/19 10/08/19 10/08/19 22:10 06:50 06:50 WBC 2.0 L RBC 4.31 Hgb 13.1 Hct 38.3 MCV 88.9 MCH 30.5 MCHC 34.3 RDW 14.1 Plt Count 126 L MPV 8.5 Absolute Neuts (auto) 0.4 L Neutrophils % 21.8 L D Lymphocytes % 57.7 H Monocytes % 13.5 H Eosinophils % 6.6 H Basophils % 0.4 Nucleated RBC % 0 PT with INR 10.90 INR 0.92 PTT (Actin FS) 28.7 Sodium Potassium Chloride Carbon Dioxide Anion Gap BUN Creatinine Est GFR (CKD-EPI)AfAm Est GFR (CKD-EPI)NonAf Random Glucose Hemoglobin A1c % Calcium Magnesium Total Bilirubin AST ALT Alkaline Phosphatase Creatine Kinase 570 H Creatine Kinase Index 1.9 CK-MB (CK-2) 10.9 H Troponin I < 0.02 Total Protein Albumin Triglycerides Cholesterol Total LDL Cholesterol HDL Cholesterol TSH HIV 1&2 Antibody Screen HIV P24 Antigen Influenza A (Rapid) Influenza B (Rapid) 10/08/19 10/08/19 10/08/19 06:50 06:50 06:50 WBC RBC Hgb Hct MCV MCH MCHC RDW Plt Count MPV Absolute Neuts (auto) Neutrophils % Lymphocytes % Monocytes % Eosinophils % Basophils % Nucleated RBC % PT with INR INR PTT (Actin FS) Sodium 140 Potassium 4.2 Chloride 108 H Carbon Dioxide 25 Anion Gap 6 L BUN 12.7 Creatinine 0.9 Est GFR (CKD-EPI)AfAm 105.72 Est GFR (CKD-EPI)NonAf 91.22 Random Glucose 89 Hemoglobin A1c % 5.2 Calcium 8.3 L Magnesium 2.4 Total Bilirubin 0.5 AST 31 ALT 30 Alkaline Phosphatase 67 Creatine Kinase Creatine Kinase Index CK-MB (CK-2) Troponin I Total Protein 6.4 Albumin 3.2 L Triglycerides 64 Cholesterol 146 Total LDL Cholesterol 65 HDL Cholesterol 72 H TSH 1.41 HIV 1&2 Antibody Screen Negative HIV P24 Antigen Negative Influenza A (Rapid) Influenza B (Rapid) 10/08/19 10/08/19 06:50 07:22 WBC RBC Hgb Hct MCV MCH MCHC RDW Plt Count MPV Absolute Neuts (auto) Neutrophils % Lymphocytes % Monocytes % Eosinophils % Basophils % Nucleated RBC % PT with INR INR PTT (Actin FS) Sodium Potassium Chloride Carbon Dioxide Anion Gap BUN Creatinine Est GFR (CKD-EPI)AfAm Est GFR (CKD-EPI)NonAf Random Glucose Hemoglobin A1c % Calcium Magnesium Total Bilirubin AST ALT Alkaline Phosphatase Creatine Kinase 434 H Creatine Kinase Index 1.9 CK-MB (CK-2) 8.6 H Troponin I 0.02 Total Protein Albumin Triglycerides Cholesterol Total LDL Cholesterol HDL Cholesterol TSH HIV 1&2 Antibody Screen HIV P24 Antigen Influenza A (Rapid) Negative Influenza B (Rapid) Negative Active Medications Generic Name Dose Route Start Last Admin Trade Name Freq PRN Reason Stop Dose Admin Aspirin 81 mg 10/08/19 10:00 10/08/19 10:40 Asa - PO 81 mg DAILY MALINDA Administration Atorvastatin Calcium 80 mg 10/08/19 22:00 Lipitor - PO HS MALINDA Chlordiazepoxide HCl 10 mg 10/07/19 21:08 Librium - PO 10/09/19 23:59 Q8H PRN Signs/symptoms of Withdrawal Chlordiazepoxide HCl 25 mg 10/07/19 21:00 10/08/19 13:13 Librium - PO 10/08/19 21:01 25 mg Q8H MALINDA Administration Chlordiazepoxide HCl 15 mg 10/09/19 05:00 Librium - PO 10/09/19 21:01 Q8H MALINDA Chlordiazepoxide HCl 10 mg 10/10/19 05:00 Librium - PO 10/10/19 21:01 Q8H MALINDA Chlordiazepoxide HCl 10 mg 10/11/19 05:00 Librium - PO 10/11/19 05:01 ONCE ONE Enoxaparin Sodium 90 mg 10/08/19 10:00 10/08/19 10:40 Lovenox - SQ 90 mg BID MALINDA Administration Folic Acid 1 mg 10/08/19 10:00 10/08/19 10:40 Folic Acid - PO 1 mg DAILY MALINDA Administration Ibuprofen 400 mg 10/07/19 21:09 10/08/19 02:22 Motrin - PO 400 mg Q6H PRN Administration FEVER Lisinopril 10 mg 10/08/19 01:12 10/08/19 10:40 Prinivil PO 10 mg DAILY MALINDA Administration Multivitamins/Minerals/Vitamin C 1 tab 10/08/19 10:00 10/08/19 11:03 Tab-A-Vit - PO Not Given DAILY [facility] Thiamine HCl 100 mg 10/08/19 10:00 10/08/19 10:40 Vitamin B1 - PO 100 mg DAILY MALINDA Administration ASSESSMENT/PLAN: 64M w/ PMH of polysubstance abuse(alcohol, cocaine--day of admission, MJ), GERD , depression, bipolar, disc herniation admitted for EKG changes suggestive of ischemia. EKG had biphasic T waves at V2, V3 consider for possible Wellen Syndrome. Admitted for ACS w/u. # new onset EKG Changes --possibly 2/2 Wellen Syndrome vs recent cocaine --- Cardio doesn't think ACS, probably cocaine > HEART SCORE 4 (EKG changes, age, risk factor smoking) > Troponins: < 0.02, <0.02, 0.02 > lipid profile: LDL 65, Tcholesterol 146 > HbA1c 5.2 > TSH 1.41 > Echo(10/08/19): LVEF 60%, RVSP 25mmHg - sp ASA 325 - cardiology(Dr. Guido) consulted: --exercise MIBI stress test --Lovenox 1mg/kg BID; [id number] --ASA 81mg QD -- no BB d/t recent cocain # Alcohol Use Disorder --at risk of withdrawing; no seizure hx > CIWA 7, on admission - Librium protocol started --day 2 - seizure, fall precautions - MVI, thiamine, folate # Leukopenia with low neutrophil count --possibly 2/2 chronic EtOH usage > Influ: neg > HIV: neg - continue to monitor, no active infections # Elevated AST --possibly 2/2 chronic EtOH usage - likely in setting of alcohol abuse, continue to monitor # L foot pain > XR Left foot: arthritic changes, swelling by fifth MTP joint; no fx - WBAT on Left foot DVT PPx - Lovenox 90mg bid in setting of EKG changes FEN - sodium controlled diet - NPO at [place] for possible stress test on 10/09/19 Dispo - telemetry Visit type - Emergency Visit Emergency Visit: No - New Patient This patient is new to me today: No - Critical Care Critical Care patient: No ATTENDING PHYSICIAN STATEMENT I saw and evaluated the patient. I reviewed the resident's note and discussed the case with the resident. I agree with the resident's findings and plan as documented. SUBJECTIVE: OBJECTIVE: ASSESSMENT AND PLAN:
--- NOTE | 2019-10-08 18:38 | PN ---
Teaching Attending Note Name of Resident: Teddy Garcia ATTENDING PHYSICIAN STATEMENT I saw and evaluated the patient. I reviewed the resident's note and discussed the case with the resident. I agree with the resident's findings and plan as documented. SUBJECTIVE: seen around 9:30 am . denies any PC or SOB or SESAY, or exertional cp . last use of alcohol was yesterday OBJECTIVE: NAD ,a wake, CV: RRR Lungs: CTAB Ext : No edema or erythema on upper or lower extremities. fine tremor in hands ASSESSMENT AND PLAN: 64 y/o man with h/o bipolar disorder, substance abuse (alcohol and cocaine), GERD, chronic back pain who presented to [facility] fro detox and was referred here fro abnormal EKG 1- Abnormal EKG : deep TWI in anterioseptal leads. - No cp or SOB or any exertional sx. - echo reviewed. - for stress test tomorrow - for now: cont statin,asa, lisinopril and lovenox - Card to follow 2- ETOH Withdrawal - cont librium protocol - cont thiamine, folate, and MVT - received IV thiamine in ER tele
[2019-10-08 18:52] VITALS: BMI 22.3
[2019-10-08] MEDS ORDERED: ATORVASTATIN CA 80 MG TABLET (FP) PO SCH (22:00)
[2019-10-09] MEDS: chlordiazePOXIDE 5 MG CAPSULE PO SCH ×2 (05:50→12:56)
[2019-10-09 07:29] LABS: BASO % 0.5 % (0-2.0); EOS % 2.7 % (0-4.5); HEMATOCRIT 37.4 % (35.4-49); HEMOGLOBIN 12.7 GM/dL (11.7-16.9); LYMPH % 29.9 % (8-40); MCH 30.3 pg (25.7-33.7); MCHC 33.9 g/dl (32.0-35.9); MEAN CELL VOLUME 89.2 fl (80-96); MEAN PLT VOLUME 8.2 fl (7.5-11.1); NEUT % 54.9 % (42.8-82.8); PLATELET COUNT 117 K/MM3 (134-434); RBC 4.19 M/mm3 (4.00-5.60); RDW 14.1 % (11.9-15.9); WHITE BLOOD COUNT 3.7 K/mm3 (4.0-10.0)
[2019-10-09] MEDS: LISINOPRIL 10 MG TABLET (FP) PO SCH (08:00)
[2019-10-09 08:14] LABS: BLOOD UREA NITROGEN 13.7 mg/dL (7-18); CALCIUM 8.7 mg/dL (8.5-10.1); CREATININE 0.9 mg/dL (0.55-1.3); MAGNESIUM 2.1 mg/dL (1.8-2.4); PHOSPHOROUS 2.3 mg/dL (2.5-4.9)
[2019-10-09] MEDS ORDERED: PT OWN MED DRAWER 7, Y5N ONE (10:43)
[2019-10-09] MEDS: FOLIC ACID 1 MG TABLET (FP) PO SCH (12:19)
[2019-10-09] MEDS: ASPIRIN 81 MG CHEWABLE TABLETS PO SCH (12:19)
[2019-10-09] MEDS: MULTIVITAMINS (DAILY MVI) TABLET (FP) PO SCH (12:19)
[2019-10-09] MEDS: ENOXAPARIN NA (PORCINE) 100 MG/1 ML DISP.SYRIN SQ SCH (12:20)
[2019-10-09] MEDS: THIAMINE HCL 100 MG TABLET (FP) PO SCH (12:21)
--- NOTE | 2019-10-09 13:43 | PN ---
Progress Note, Physician Chief Complaint: Pt A&Ox3; no chest pain; finished stress test. History of Present Illness: The patient is a 64 year old black man, with a significant past medical history of HTN, diastolic CHF, Anemia, Depression, and Polysubstance Abuse (alcohol, cocaine, heroin), who presents to the emergency department via EMS from [facility] with abnormal EKG findings. As per patient, he drank an unknown amount of beer, a pint of vodka, and crack cocaine (approx $120 worth) then went to [facility] for detox. Per [facility] his EKG depicted showed abnormal t waves. He denies any recent fevers, chills, headache or dizziness. He denies any recent nausea, vomit, diarrhea or constipation. He denies any recent chest pain or shortness of breath. He denies any recent dysuria, frequency, urgency or hematuria. Allergies: Tetracycline Past surgical history: None reported. - Current Medication List Current Medications: Active Medications Aspirin (Asa -) 81 mg PO DAILY [facility] Last Admin: 10/09/19 12:19 Dose: 81 mg Atorvastatin Calcium (Lipitor -) 80 mg PO HS [facility] Last Admin: 10/08/19 21:47 Dose: 80 mg Chlordiazepoxide HCl (Librium -) 10 mg PO Q8H PRN PRN Reason: Signs/symptoms of Withdrawal Stop: 10/09/19 23:59 Chlordiazepoxide HCl (Librium -) 15 mg PO Q8H [facility] Stop: 10/09/19 21:01 Last Admin: 10/09/19 12:56 Dose: 15 mg Chlordiazepoxide HCl (Librium -) 10 mg PO Q8H [facility] Stop: 10/10/19 21:01 Chlordiazepoxide HCl (Librium -) 10 mg PO ONCE ONE Stop: 10/11/19 05:01 Enoxaparin Sodium (Lovenox -) 90 mg SQ BID [facility] Last Admin: 10/09/19 12:20 Dose: 90 mg Folic Acid (Folic Acid -) 1 mg PO DAILY [facility] Last Admin: 10/09/19 12:19 Dose: 1 mg Ibuprofen (Motrin -) 400 mg PO Q6H PRN PRN Reason: FEVER Last Admin: 10/08/19 20:34 Dose: 400 mg Lisinopril (Prinivil) 10 mg PO DAILY [facility] Last Admin: 10/09/19 08:00 Dose: 10 mg Multivitamins/Minerals/Vitamin C (Tab-A-Vit -) 1 tab PO DAILY [facility] Last Admin: 10/09/19 12:19 Dose: 1 tab Thiamine HCl (Vitamin B1 -) 100 mg PO DAILY [facility] Last Admin: 10/09/19 12:21 Dose: 100 mg - Objective Vital Signs: Vital Signs Temperature 97.6 F 10/09/19 07:57 Pulse Rate 56 L 10/09/19 07:57 Respiratory Rate 18 10/09/19 07:59 Blood Pressure 148/94 10/09/19 07:57 O2 Sat by Pulse Oximetry (%) 100 10/09/19 07:59 Constitutional: Yes: Well Nourished Eyes: Yes: WNL HENT: Yes: WNL Neck: Yes: WNL Cardiovascular: Yes: Regular Rate and Rhythm Respiratory: Yes: WNL Gastrointestinal: Yes: WNL ...Rectal Exam: Yes: Deferred Genitourinary: Yes: WNL Breast(s): Yes: WNL Musculoskeletal: Yes: WNL Extremities: Yes: WNL Edema: Yes Peripheral Pulses WNL: Yes Integumentary: Yes: WNL Wound/Incision: Yes: Clean/Dry Neurological: Yes: WNL ...Motor Strength: WNL Labs: CBC, BMP 10/09/19 07:03 10/09/19 07:03 INR, PTT INR 0.92 (0.83-1.09) 10/08/19 06:50 Abnormal Lab Results 10/09/19 10/09/19 07:03 07:03 WBC 3.7 L Plt Count 117 L Monocytes % 12.0 H Chloride 108 H Anion Gap 3 L Phosphorus 2.3 L - ....Imaging Chest X-ray: Image Reviewed EKG: Image Reviewed Problem List - Problems (1) HTN (hypertension) Code(s): I10 - ESSENTIAL (PRIMARY) HYPERTENSION (2) Alcohol dependence with uncomplicated withdrawal Code(s): F10.230 - ALCOHOL DEPENDENCE WITH WITHDRAWAL, UNCOMPLICATED (3) Cocaine dependence Assessment/Plan: Do not use beta blockers. Drug rehab team to follow. Code(s): F14.20 - COCAINE DEPENDENCE, UNCOMPLICATED Qualifiers: Substance use status: uncomplicated Qualified Code(s): F14.20 - Cocaine dependence, uncomplicated (4) Nicotine dependence Code(s): F17.200 - NICOTINE DEPENDENCE, UNSPECIFIED, UNCOMPLICATED Qualifiers: Nicotine product type: cigarettes Substance use status: uncomplicated Qualified Code(s): F17.210 - Nicotine dependence, cigarettes, uncomplicated (5) Abnormal EKG Assessment/Plan: Stress treadmill MIBI: fairly good exercise functional capacity; no ischemia. From a cardiac perspective, pt may be followed as an outpatient. Off statin (low LDL; need for statin not evident, and may be followed outside for this). Code(s): R94.31 - ABNORMAL ELECTROCARDIOGRAM [ECG] [EKG]
[2019-10-09 14:57] VITALS: BP 132/91; PULSE 81; TEMP 98
--- NOTE | 2019-10-09 15:09 | PN ---
Teaching Attending Note Name of Resident: Teddy Garcia ATTENDING PHYSICIAN STATEMENT I saw and evaluated the patient. I reviewed the resident's note and discussed the case with the resident. I agree with the resident's findings and plan as documented. SUBJECTIVE: seen after his stress test no pain , no N/v . very hungry and wants to eat. L lower flank pain OBJECTIVE: NAD,awake, aggravated CV: RRR Lungs: CTAB Ext : No edema or erythema on upper or lower extremities. fine tremor in hands ASSESSMENT AND PLAN: 64 y/o man with h/o bipolar disorder, substance abuse (alcohol and cocaine), GERD, chronic back pain who presented to [facility] fro detox and was referred here for abnormal EKG 1- Abnormal EKG: deep TWI in anterioseptal leads. - Stress neg . no need for statin or ASA. dc lovenox - f/u with card as out pt 2- HTN: cont lisinopril. need BMP in 1 week 3- ETOH Withdrawal . - cont librium protocol at [facility] - cont thiamine, folate, and MVT dc to [facility].
--- NOTE | 2019-10-09 15:30 | DS ---
Physical Exam: SUBJECTIVE: Patient seen and examined OBJECTIVE: Vital Signs Period Temp Pulse Resp BP Sys/Lei Pulse Ox Last 24 Hr 97.1 F-98.3 F 50-81 18-20 132-149/75-94 98-100 PHYSICAL EXAM GENERAL: The patient is awake, alert, and fully oriented, in no acute distress. HEAD: NC/AT. No temporal wasting EYES: extraocular movements intact, sclera anicteric, conjunctiva clear. No ptosis. ENT: Ears normal, nares patent, oropharynx clear without exudates, moist mucous membranes. NECK: Trachea midline, full range of motion, supple. LUNGS: Breath sounds equal, clear to auscultation bilaterally, no wheezes, no crackles, no accessory muscle use. Breathing RA HEART: Regular rate and rhythm, S1, S2 without murmur, rub or gallop. ABDOMEN: Soft, nontender, nondistended, normoactive bowel sounds, no guarding, no rebound. EXTREMITIES: 2+ pulses, warm, well-perfused, no edema. NEUROLOGICAL: Moving all limbs spontaneously and purposefully. Normal speech, normal gait. No tremors with arms outstretched SKIN: Warm, dry, normal turgor, no rashes or lesions noted LABS Laboratory Results - last 24 hr 10/09/19 10/09/19 07:03 07:03 WBC 3.7 L RBC 4.19 Hgb 12.7 Hct 37.4 MCV 89.2 MCH 30.3 MCHC 33.9 RDW 14.1 Plt Count 117 L MPV 8.2 Absolute Neuts (auto) 2.0 Neutrophils % 54.9 D Lymphocytes % 29.9 D Monocytes % 12.0 H Eosinophils % 2.7 Basophils % 0.5 Nucleated RBC % 0 Sodium 140 Potassium 4.0 Chloride 108 H Carbon Dioxide 28 Anion Gap 3 L BUN 13.7 Creatinine 0.9 Est GFR (CKD-EPI)AfAm 105.72 Est GFR (CKD-EPI)NonAf 91.22 Random Glucose 105 Calcium 8.7 Phosphorus 2.3 L Magnesium 2.1 HOSPITAL COURSE: Date of Admission:10/07/19 Date of Discharge: 10/09/19 64M w/ PMH of polysubstance abuse(alcohol, cocaine--day of admission, MJ), GERD , depression, bipolar, disc herniation admitted for EKG changes suggestive of ischemia. EKG had biphasic T waves at V2, V3 consider for possible Wellen Syndrome. Received ASA 325mg, Lovenox 90 BID, atorvastatin 80mg. Admitted for ACS w/u. Librium protocol for [facility] CIWA~14. Echo normal with LVEF 60%, RVSP 25mmHg. Cardiac Stress test was normal. HbA1c 5.2. Discussion with Cardiology( [place]ata) determined that neither ASA or Lipitor was needed at this time. Stable for transfer to [facility] to continue EtOH withdrawal program Minutes to complete discharge: 32 Discharge Summary Problems reviewed: Yes Reason For Visit: ABNORMAL ELECTROCARDIOGRAPHY Current Active Problems Abnormal EKG (Acute) HTN (hypertension) (Acute) Alcohol dependence with uncomplicated withdrawal (Chronic 06/25/17) Cocaine dependence (Chronic) Nicotine dependence (Chronic 06/25/17) Condition: Improved - Instructions Diet, Activity, Other Instructions: You were evaluated in the hospital for an abnormal EKG. A music industry internship evaluated you. An echocardiogram was performed which did not show any major abnormalities. You had a cardiac stress test which showed no abnormalities. While hospitalized, you received Librium to prevent alcohol withdrawal. You are discharged back to [facility] to complete your detox. MEDICATIONS: - Folic Acid, 1mg daily - Thiamine HCl[VITAMIN B1] 100mg, daily - lisinopril daily. this needs to be prescribed after dc from [facility]. Additional Instructions: - diet: adhere to a low-sodium, low-sugar, high-fiber diet - avoid illicit substances(alcohol, cocaine, etc). Consider joining REhab program (also available at [facility]) once you finish your detox to assist in your abstinence. Please follow up with the physicians below: - Primary Care Physician(or come to our [facility]): to discuss your recent hospitalization. A referral has been provided. - Cardiology([place]): to continue monitoring you for any changes in your EKG. A referral has been provided. Please seek immediate medical evaluation if you experience: - severe chest pain, chest pressure, shortness of breath, palpitations You need BMP in 1 week , to evaluate renal function after starting lisinopril. Alcohol detox to continue at [facility] Referrals: [facility] [place] [facility] [place] [Provider Group] Feng Guido MD [Staff Physician] - Disposition: TRANSFER ACUTE CARE/OTHER HOSP - Home Medications Comprehensive Discharge Medication List: Ambulatory Orders Folic Acid - 1 mg PO DAILY tablet 10/09/19 Lisinopril [Prinivil] 10 mg PO DAILY #30 tablet 10/09/19 Multivitamins [Multivit ([facility] Formulary)] 1 tab PO DAILY tab 10/09/19 Thiamine HCl [Vitamin B1 -] 100 mg PO DAILY tablet 10/09/19 This patient is new to me today: No Emergency Visit: No Critical Care patient: No - Discharge Referral Referred to [facility] Med [facility] No ATTENDING PHYSICIAN STATEMENT I saw and evaluated the patient. I reviewed the resident's note and discussed the case with the resident. I agree with the resident's findings and plan as documented. SUBJECTIVE: OBJECTIVE: ASSESSMENT AND PLAN:
[2019-10-10] MEDS ORDERED: chlordiazePOXIDE HCL 10 MG CAPSULE PO SCH (05:00)
== END 2019-10-09 16:13 | disposition short-term general hospital (02) | DRG 207 ==
LOC: JER 14:55 → JERBED 21:04 → J4W 10-08 18:38
PROVIDERS: ADMIT Internal Medicine; ATTEND Internal Medicine
DX: R94.31 Abnormal electrocardiogram [ECG] [EKG] (principal); F10.230 Alcohol dependence with withdrawal, uncomplicated; F14.20 Cocaine dependence, uncomplicated; F31.30 Bipolar disorder, current episode depressed, mild or moderate severity, unspecified; K21.9 Gastro-esophageal reflux disease without esophagitis; M54.9 Dorsalgia, unspecified; M79.10 Myalgia, unspecified site; F17.210 Nicotine dependence, cigarettes, uncomplicated
CPT/HCPCS: 36415; 71045-TC-FY; 73630-TC-LT; 78452-TC; 80048; 80053; 80061; 82550; 82553; 83036; 83721; 83735; 84100; 84443; 84484; 85025; 85610; 85730; 87389; 87804; 93005; 93010; 93017; 93306-TC; 99285-25; A9502; J7030

== ENCOUNTER 2019-10-09 16:52 | Inpatient (IN) | payer OTHER ==
[2019-10-09 16:59] VITALS: BMI 22.2
--- NOTE | 2019-10-09 17:30 | HP ---
CIWA Score Nausea/Vomitin-No Nausea/No Vomiting Muscle Tremors: None Anxiety: 2 Agitation: 0-Normal Activity Paroxysmal Sweats: 2 Orientation: 0-Oriented Tacttile Disturbances: 2-Mild Itch/Numbness/Burn Auditory Disturbances: 1-Very Mild Visual Disturbances: 2-Mild Sensitivity Headache: 1-Very Mild CIWA-Ar Total Score: 10 - Admission Criteria OASAS Guidelines: Admission for Medically Managed Detox: Requires at least one of the followin. CIWA greater than 12 2. Seizures within the past 24 hours 3. Delirium tremens within the past 24 hours 4. Hallucinations within the past 24 hours 5. Acute intervention needed for co occurring medical disorder 6. Acute intervention needed for co occurring psychiatric disorder 7. Severe withdrawal that cannot be handled at a lower level of care (continued vomiting, continued diarrhea, abnormal vital signs) requiring intravenous medication and/or fluids 8. Admitting History and Physical - Past Medical History Cardiovascular: Yes: HTN Heme/Onc: Yes: Anemia Psych: Yes: Addictions, Depression Musculoskeletal: Yes: Other (slip disc lower back.) - Past Surgical History Past Surgical History: Yes: None - Smoking History Smoking history: Current every day smoker Have you smoked in the past 12 months: Yes Aproximately how many cigarettes per day: 10 - Alcohol/Substance Use Hx Alcohol Use: Yes History of Substance Use: reports: Cocaine Date of Last Use: 10/07/19 - Social History History of Recent Travel: No Admission [facility] Allergies/Adverse Reactions: Allergies Allergy/AdvReac Type Severity Reaction Status Date / Time tetracycline Allergy Severe Hives Verified 10/09/19 17:13 History of Present Illness: pt here to continue etoh detox s/p hospitalization to telemetry for cardiac issues, cleared by cardiology w/ d/c instructions to continue Lisinopril 10 mg daily. Pt denies c/o CP at this time. Exam Limitations: No Limitations - Review of Systems Constitutional: No Symptoms Reported EENT: reports: No Symptoms Reported, Other (glasses , denies dysphagia) Respiratory: reports: No Symptoms reported Cardiac: reports: No Symptoms Reported GI: reports: Diarrhea : reports: No Symptoms Reported Musculoskeletal: reports: Back Pain (chronic x 20 years) Integumentary: reports: No Symptoms Reported Neuro: reports: See HPI Endocrine: reports: No Symptoms Reported Psychiatric: reports: Orientated x3, Agitated, Anxious Patient History - Patient Medical History Hx Anemia: Yes Hx Asthma: No Hx Chronic Obstructive Pulmonary Disease (COPD): No Hx Cancer: No Hx Cardiac Disorders: No Hx Congestive Heart Failure: No Hx Hypertension: No Hx Hypercholesterolemia: No Hx Pacemaker: No HX Cerebrovascular Accident: No Hx Seizures: No Hx Dementia: No Hx Diabetes: No Hx Gastrointestinal Disorders: No Hx Liver Disease: No Hx Genitourinary Disorders: No Hx Sexually Transmitted Disorders: No Hx Renal Disease (ESRD): No Hx Thyroid Disease: No Hx Human Immunodeficiency Virus (HIV): No (NEGATIVE HX) Hx Hepatitis C: No Hx Depression: Yes Hx Suicide Attempt: No Hx Bipolar Disorder: Yes Hx Schizophrenia: No - Patient Surgical History Past Surgical History: No Hx Neurologic Surgery: No Hx Cataract Extraction: No Hx Cardiac Surgery: No Hx Lung Surgery: No Hx Breast Surgery: No Hx Breast Biopsy: No Hx Abdominal Surgery: No Hx Appendectomy: No Hx Cholecystectomy: No Hx Genitourinary Surgery: No Hx Section: No Hx Orthopedic Surgery: No Anesthesia Reaction: No - PPD History Results: CXR TBD - Smoking Cessation Smoking history: Current every day smoker Have you smoked in the past 12 months: Yes Aproximately how many cigarettes per day: 10 Hx Chewing Tobacco Use: No Initiated information on smoking cessation: Yes 'Breaking Loose' booklet given: 10/09/19 - Substances abused Alcohol Substance route: Oral Frequency: Daily Amount used: 1 PINT OF VODKA, 16OZ+ BEER, Age of first use: 14 Date of last use: 10/07/19 Crack Substance route: Smoking Frequency: Daily Amount used: $10-300/DAILY Age of first use: 40 Date of last use: 10/07/19 Marijuana/Hashish Substance route: Smoking Frequency: 1-2 times per week Amount used: JOINT/WEEK Age of first use: 17 Date of last use: 10/02/19 Heroin Substance route: Inhalation Frequency: Daily Amount used: 2 BAGS DAILY Date of last use: 09/08/19 Admission Physical Exam BHS - Vital Signs Vital Signs: Vital Signs - 24 hr 10/09/19 16:54 Temperature 98.7 F Pulse Rate 80 Respiratory 16 Rate Blood Pressure 132/79 - Physical General Appearance: Yes: Mild Distress, Anxious HEENTM: Yes: EOMI, Hearing grossly Normal, Normocephalic, Normal Voice Respiratory: Yes: Chest Non-Tender, Lungs Clear, Normal Breath Sounds, No Respiratory Distress, No Accessory Muscle Use Neck: Yes: No masses,lesions,Nodules, Trachea in good position Cardiology: Yes: Regular Rhythm, Regular Rate, S1, S2 Abdominal: Yes: Non Tender, Soft Musculoskeletal: Yes: Gait Steady Extremities: Yes: Normal Range of Motion, Non-Tender, Other (OA deformities left IV th toe) Neurological: Yes: Alert, Motor Strength 5/5, Depressed Affect Integumentary: Yes: Warm - Diagnostic (1) Alcohol dependence with uncomplicated withdrawal Current Visit: No Status: Chronic (2) Cocaine dependence Current Visit: Yes Status: Chronic Qualifiers: Substance use status: uncomplicated Qualified Code(s): F14.20 - Cocaine dependence, uncomplicated (3) Nicotine dependence Current Visit: Yes Status: Chronic Qualifiers: Nicotine product type: cigarettes Breathalyzer - Breathalyzer Breathalyzer: 0.052 Urine Drug Screen - Test Device Lot number: [id number] Expiration date: 07/28/21 - Control Is test valid?: Yes - Results Drug screen NEGATIVE: Yes Urine drug screen results: SARAH-Cocaine Inpatient Rehab Admission - Rehab Decision to Admit Inpatient rehab admission?: No
[2019-10-09] MEDS ORDERED: MELATONIN 5 MG TABLETS PO PRN (17:33)
[2019-10-09] MEDS ORDERED: MAGNESIUM HYDROX 2400MG/30ML ORAL SUSPENSION 30 ML CUP PO PRN (17:33)
[2019-10-09] MEDS ORDERED: BISMUTH SUBSALICYLATE 524 MG/30 ML UD PO PRN (17:33)
[2019-10-09] MEDS ORDERED: MAG HYDROX/AL HYDROX/SIMETH 30 ML UNIT-DOSE CUP PO PRN (17:33)
[2019-10-09] MEDS ORDERED: MAGNESIUM CITRATE 300 ML BOTTLE PO PRN (17:33)
[2019-10-09] MEDS ORDERED: NICOTINE POLACRILEX 2 MG GUM BUC PRN (17:33)
[2019-10-09] MEDS ORDERED: MENTHOL/PHENOL 1 EACH UD MM PRN (17:33)
[2019-10-09] MEDS ORDERED: ACETAMINOPHEN 325 MG TABLET (FP) PO PRN ×2 (17:33)
[2019-10-09] MEDS ORDERED: chlordiazePOXIDE HCL 10 MG CAPSULE PO PRN (17:35)
[2019-10-09] MEDS ORDERED: chlordiazePOXIDE HCL 25 MG CAPSULE PO ONE (19:00)
[2019-10-09] MEDS ORDERED: chlordiazePOXIDE 5 MG CAPSULE PO ONE (19:15)
[2019-10-09] MEDS: THIAMINE HCL 100 MG TABLET (FP) PO SCH (22:11)
[2019-10-10] MEDS: chlordiazePOXIDE HCL 10 MG CAPSULE PO SCH ×3 (05:35→22:13)
--- NOTE | 2019-10-10 09:25 | CONSULT ---
[facility] Psychiatric Consult - Data Date of interview: 10/10/19 Admission source: Self-referred Identifying data: Mr Styles is a 64 years old Black male, father of a 41 years old daughter, unemployed receiving SSI, domiciled seeking detox treatment for alcohol, opioid and cocaine Substance Abuse History: Reports history of alcohol, heroin and cocaine use. Refer to addiction counselor's summary for further information Medical History: Significant for hypertension, GERD, PPD+ and herniated disc and history of anemia. Smokes 10 cigarettes daily Psychiatric History: Patient is known for two previous admissions to this facility. Historical narrative remains consistent. Reports that his first psychiatric contact occured in 2004 when he was admitted to [facility] for 2 weeks. He said that he was diagnosed Bipolar Disorder and started on Depakote and Seroquel. Reports that his most recent outpatient psychiatric treatment was 2 years ago when he was seeing a psychiatrist at [facility] clinic and he is prescribed Abilify. He said that since he moved to the [place] 2 years ago, he has not sen psychiatrist and has been off medications. Denies previous suicidal attempt. At present, denies experiencing psychotic, manic or depressive symptoms, S/H ideations. He request to take only medication for insomnia during this admission. Physical/Sexual Abuse/Trauma History: Denies history of verbal, physical or sexual abuse as well as DV relationship Additional Comment: Reports history of 2 previous arrests including one felony conviction. No parole/probation currently Mental Status Exam - Mental Status Exam Alert and Oriented to: Time, Place, Person Cognitive Function: Fair Patient Appearance: Well Groomed Mood: Hopeful, Euthymic Patient Behavior: Cooperative Speech Pattern: Clear Voice Loudness: Normal Thought Process: Intact, Goal Oriented Hallucinations: Denies Suicidal Ideation: Denies Homicidal Ideation: Denies Insight/Judgement: Poor Sleep: Poorly Appetite: Good Muscle strength/Tone: Normal Gait/Station: Normal Psychiatric Findings - Problem List ([place] 1, 2,3) (1) Bipolar disorder Current Visit: No Status: Chronic Qualifiers: Active/Remission status: remission status unspecified Qualified Code(s): F31.9 - Bipolar disorder, unspecified (2) Substance-induced sleep disorder Current Visit: No Status: Acute (3) Alcohol dependence with uncomplicated withdrawal Current Visit: No Status: Acute (4) Cocaine dependence Current Visit: Yes Status: Acute Qualifiers: Substance use status: uncomplicated Qualified Code(s): F14.20 - Cocaine dependence, uncomplicated (5) Opioid abuse Current Visit: Yes Status: Acute (6) Nicotine dependence Current Visit: Yes Status: Chronic Qualifiers: Nicotine product type: cigarettes (7) Abnormal EKG Current Visit: No Status: Chronic (8) Anemia Current Visit: Yes Status: Resolved (9) Herniated disc Current Visit: Yes Status: Chronic - Initial Treatment Plan Initial Treatment Plan: 1) Start Belsomra 10 mg po HS prn for insomnia. 2) Continue inpatient detoxification
[2019-10-10] MEDS: IBUPROFEN 400 MG TABLET (FP) PO PRN ×2 (09:44→22:13)
[2019-10-10] MEDS: LISINOPRIL 10 MG TABLET (FP) PO SCH (10:03)
[2019-10-10] MEDS: PRENATAL VITAMINS W/ FOLIC ACID TABLET (FP) PO SCH (10:03)
--- NOTE | 2019-10-10 11:20 | PN ---
S CIWA - CIWA Score Nausea/Vomitin-Mild Nausea/No Vomiting Muscle Tremors: 2 Anxiety: 2 Agitation: 2 Paroxysmal Sweats: No Perspiration Orientation: 0-Oriented Tacttile Disturbances: 1-Very Mild Itch/Numbness Auditory Disturbances: 0-None Visual Disturbances: 0-None Headache: 2-Mild CIWA-Ar Total Score: 10 BHS Progress Note (SOAP) Subjective: alert,irritable,anxious,interrupted sleep,pain in the body Objective: 10/10/19 11:18 Vital Signs Temperature 98.2 F 10/10/19 08:31 Pulse Rate 72 10/10/19 08:31 Respiratory Rate 18 10/10/19 08:31 Blood Pressure 157/74 10/10/19 08:31 O2 Sat by Pulse Oximetry (%) Assessment: 10/10/19 11:19 withdrawal symptom Plan: continue detox librium regimen
[2019-10-10] MEDS: hydrOXYzine PAMOATE 25 MG CAPSULE (FP) PO PRN (17:19)
[2019-10-10] MEDS: THIAMINE HCL 100 MG TABLET (FP) PO SCH (22:13)
[2019-10-10] MEDS: SUVOREXANT 10 MG TABLET PO PRN (22:14)
[2019-10-11] MEDS ORDERED: chlordiazePOXIDE HCL 10 MG CAPSULE PO ONE (05:00)
[2019-10-11] MEDS: IBUPROFEN 400 MG TABLET (FP) PO PRN ×2 (06:03→22:29)
[2019-10-11] MEDS: PRENATAL VITAMINS W/ FOLIC ACID TABLET (FP) PO SCH (10:04)
[2019-10-11] MEDS: LISINOPRIL 10 MG TABLET (FP) PO SCH (10:04)
[2019-10-11] MEDS: hydrOXYzine PAMOATE 25 MG CAPSULE (FP) PO PRN ×2 (10:05→22:27)
--- NOTE | 2019-10-11 12:01 | PN ---
BHS CIWA - CIWA Score Nausea/Vomitin-Mild Nausea/No Vomiting Muscle Tremors: 2 Anxiety: 1-Mildly Anxious Agitation: 0-Normal Activity Paroxysmal Sweats: 1-Minimal Palms Moist Orientation: 0-Oriented Tacttile Disturbances: 1-Very Mild Itch/Numbness Auditory Disturbances: 0-None Visual Disturbances: 0-None Headache: 2-Mild CIWA-Ar Total Score: 8 BHS Progress Note (SOAP) Subjective: Generalized pain, interrupted sleep Objective: 10/11/19 12:00 Vital Signs - 8 hr 10/11/19 10/11/19 06:39 09:07 Temperature 97.7 F 97.7 F Pulse Rate 71 79 Respiratory 20 18 Rate Blood Pressure 143/89 158/90 VSS Assessment: 10/11/19 12:00 Withdrawal sx Plan: Continue detox
[2019-10-11] MEDS ORDERED: cloNIDine HCL 0.1 MG TABLET PO ONE (22:07)
[2019-10-11] MEDS: THIAMINE HCL 100 MG TABLET (FP) PO SCH (22:25)
[2019-10-11] MEDS: SUVOREXANT 10 MG TABLET PO PRN (22:27)
[2019-10-12] MEDS: IBUPROFEN 400 MG TABLET (FP) PO PRN ×3 (06:23→22:29)
[2019-10-12] MEDS: hydrOXYzine PAMOATE 25 MG CAPSULE (FP) PO PRN ×2 (06:24→22:29)
[2019-10-12] MEDS: LISINOPRIL 10 MG TABLET (FP) PO SCH (10:12)
[2019-10-12] MEDS: PRENATAL VITAMINS W/ FOLIC ACID TABLET (FP) PO SCH (10:12)
[2019-10-12] MEDS: cloNIDine HCL 0.1 MG TABLET PO PRN ×2 (12:48→22:29)
[2019-10-12] MEDS: CYCLOBENZAPRINE HCL 10 MG TABLET (FP) PO PRN (12:49)
--- NOTE | 2019-10-12 14:12 | PN ---
BHS CIWA - CIWA Score Nausea/Vomitin-No Nausea/No Vomiting Muscle Tremors: None Anxiety: 2 Agitation: 2 Paroxysmal Sweats: 2 Orientation: 0-Oriented Tacttile Disturbances: 0-None Auditory Disturbances: 0-None Visual Disturbances: 0-None Headache: 0-None Present CIWA-Ar Total Score: 6 BHS Progress Note (SOAP) Subjective: Sweating, body ache, interrupted sleep, anxiety, tremor, back pain (chronic, s/ p slipped disc as per patient), patient requesting medication for muscle spasm and withdrawal sxs. Objective: 10/12/19 14:08 Last Vital Signs Temp Pulse Resp BP Pulse Ox 98.2 F 71 18 150/94 10/12/19 12:44 10/12/19 12:44 10/12/19 12:44 10/12/19 12:44 Elevated b/p noted: has htn, continue lisinopril Labs reviewed Assessment: 10/12/19 14:10 Withdrawal sxs Plan: Continue detox Encouraged PO water intake Start flexeril 10mg TID prn Continue prn vistaril Start clonidine prn for withdrawal sxs Scheduled for discharge tomorrow
[2019-10-12] MEDS: SUVOREXANT 10 MG TABLET PO PRN (22:28)
[2019-10-12] MEDS: THIAMINE HCL 100 MG TABLET (FP) PO SCH (22:29)
[2019-10-13] MEDS: IBUPROFEN 400 MG TABLET (FP) PO PRN ×2 (06:01→13:54)
[2019-10-13] MEDS: hydrOXYzine PAMOATE 25 MG CAPSULE (FP) PO PRN (06:03)
[2019-10-13] MEDS: CYCLOBENZAPRINE HCL 10 MG TABLET (FP) PO PRN ×2 (06:06→13:54)
--- NOTE | 2019-10-13 09:01 | DS ---
[facility] Detox Discharge Summary Admission Date: 10/09/19 Discharge Date: 10/13/19 - History Present History: Alcohol Dependence, Cannabis Dependence, Opioid Dependence - Physical Exam Results Vital Signs: Vital Signs Temperature 97.7 F 10/13/19 08:01 Pulse Rate 81 10/13/19 08:01 Respiratory Rate 18 10/13/19 08:01 Blood Pressure 129/83 10/13/19 08:01 O2 Sat by Pulse Oximetry (%) Pertinent Admission Physical Exam Findings: Vital Signs Temperature 97.7 F 10/13/19 08:01 Pulse Rate 81 10/13/19 08:01 Respiratory Rate 18 10/13/19 08:01 Blood Pressure 129/83 10/13/19 08:01 O2 Sat by Pulse Oximetry (%) aaox3 ambulating +BS all four quadrants no acute distress - Treatment Hospital Course: Detox Protocol Followed, Detoxed Safely, Responded well, Discharged Condition Good, Rehab Referral Accepted - Medication Discharge Medications: Ambulatory Orders Folic Acid - 1 mg PO DAILY tablet 10/09/19 Lisinopril [Prinivil] 10 mg PO DAILY #30 tablet 10/09/19 Multivitamins [Multivit ([facility] Formulary)] 1 tab PO DAILY tab 10/09/19 Thiamine HCl [Vitamin B1 -] 100 mg PO DAILY tablet 10/09/19 - Diagnosis (1) Cocaine dependence Current Visit: Yes Status: Chronic Qualifiers: Substance use status: uncomplicated Qualified Code(s): F14.20 - Cocaine dependence, uncomplicated (2) Opioid abuse Current Visit: Yes Status: Acute (3) Herniated disc Current Visit: Yes Status: Chronic Qualifiers: Mid-cervical spinal level: unspecified (4) Nicotine dependence Current Visit: Yes Status: Chronic Qualifiers: Nicotine product type: cigarettes Substance use status: uncomplicated Qualified Code(s): F17.210 - Nicotine dependence, cigarettes, uncomplicated (5) Anemia Current Visit: Yes Status: Resolved (6) Alcohol dependence with uncomplicated withdrawal Current Visit: No Status: Acute (7) HTN (hypertension) Current Visit: No Status: Acute (8) Substance-induced sleep disorder Current Visit: No Status: Acute (9) Abnormal EKG Current Visit: No Status: Chronic (10) Bipolar disorder Current Visit: No Status: Chronic Qualifiers: Active/Remission status: remission status unspecified Qualified Code(s): F31.9 - Bipolar disorder, unspecified (11) PPD positive Current Visit: No Status: Chronic (12) GERD (gastroesophageal reflux disease) Current Visit: No Status: Resolved Qualifiers: Esophagitis presence: without esophagitis Qualified Code(s): K21.9 - Gastro -esophageal reflux disease without esophagitis - AMA Did Patient Leave Against Medical Advice: No
[2019-10-13] MEDS: LISINOPRIL 10 MG TABLET (FP) PO SCH (10:24)
[2019-10-13] MEDS: PRENATAL VITAMINS W/ FOLIC ACID TABLET (FP) PO SCH (10:24)
[2019-10-13] MEDS: cloNIDine HCL 0.1 MG TABLET PO PRN (15:16)
[2019-10-13 17:24] VITALS: BP 158/85; PULSE 62; TEMP 98.2
== END 2019-10-13 17:36 | disposition other institution (70) | DRG 773 ==
LOC: YASAS 16:52 → Y6N 18:35
PROVIDERS: ADMIT Allergy & Immunology; ATTEND Allergy & Immunology
PROC: HZ2ZZZZ Detoxification Services for Substance Abuse Treatment (ICD-10-PCS; principal; 2019-10-09)
DX: F10.230 Alcohol dependence with withdrawal, uncomplicated (principal); F11.20 Opioid dependence, uncomplicated; F14.20 Cocaine dependence, uncomplicated; F17.210 Nicotine dependence, cigarettes, uncomplicated; F19.282 Other psychoactive substance dependence with psychoactive substance-induced sleep disorder; F31.9 Bipolar disorder, unspecified; I10 Essential (primary) hypertension; K21.9 Gastro-esophageal reflux disease without esophagitis; M50.220 Other cervical disc displacement, mid-cervical region, unspecified level; M51.26 Other intervertebral disc displacement, lumbar region; R94.31 Abnormal electrocardiogram [ECG] [EKG]; R76.11 Nonspecific reaction to tuberculin skin test without active tuberculosis; Z86.2 Personal history of diseases of the blood and blood-forming organs and certain disorders involving the immune mechanism; Z88.1 Allergy status to other antibiotic agents
CPT/HCPCS: J0735

== ENCOUNTER 2019-10-13 17:44 | Inpatient (IN) | payer OTHER ==
--- NOTE | 2019-10-13 17:57 | HP ---
[facility] Rehab Assess/Revision - Admission History Ad[facility]hab [facility] Date of Admission to Rehab: 10/13/2019 - Findings Detox History & Physical reviewed: Yes Concur with findings: Yes Comments/Additional Findings: Patient completed alcohol detox. Patient w/ hx CP that was evaluated in [facility] and cleared. Patient on HTN meds. Inpatient Rehab Admission - Rehab Decision to Admit Inpatient rehab admission?: Yes - Initial Determination Are CD services needed?: Yes Free of communicable disease: Yes Not in need of hospitalization: Yes - Rehab Admission Criteria Previous failed treatment: Yes Poor recovery environment: Yes Comorbidities: Yes Lacks judgement: No Patient is meeting Inpatient Rehab admission criteria:: Yes
[2019-10-13] MEDS ORDERED: MENTHOL/PHENOL 1 EACH UD MM PRN (18:07)
[2019-10-13] MEDS ORDERED: MAGNESIUM HYDROX 2400MG/30ML ORAL SUSPENSION 30 ML CUP PO PRN (18:07)
[2019-10-13] MEDS ORDERED: MAGNESIUM CITRATE 300 ML BOTTLE PO PRN (18:07)
[2019-10-13] MEDS ORDERED: LOPERAMIDE HCL 2 MG CAPSULE PO PRN (18:07)
[2019-10-13] MEDS ORDERED: P-EPHED 60MG/TRIPROLIDI 2.5MG TABLET PO PRN (18:07)
[2019-10-13] MEDS ORDERED: guaiFENesin 200 MG/10 ML 10 ML UNIT-DOSE CUPS PO PRN (18:07)
[2019-10-13] MEDS ORDERED: NICOTINE POLACRILEX 2 MG GUM BUC PRN (18:07)
[2019-10-13] MEDS: THIAMINE HCL 100 MG TABLET (FP) PO SCH (21:29)
[2019-10-13] MEDS: MELATONIN 5 MG TABLETS PO PRN (21:29)
[2019-10-13] MEDS: IBUPROFEN 400 MG TABLET (FP) PO PRN (21:31)
[2019-10-13] MEDS: SUVOREXANT 10 MG TABLET PO PRN (21:31)
[2019-10-13] MEDS: hydrOXYzine PAMOATE 25 MG CAPSULE (FP) PO PRN (21:33)
[2019-10-14] MEDS: IBUPROFEN 400 MG TABLET (FP) PO PRN ×3 (05:37→21:24)
[2019-10-14] MEDS: MAG HYDROX/AL HYDROX/SIMETH 30 ML UNIT-DOSE CUP PO PRN (05:38)
[2019-10-14] MEDS: PRENATAL VITAMINS W/ FOLIC ACID TABLET (FP) PO SCH (09:40)
[2019-10-14] MEDS: LISINOPRIL 10 MG TABLET (FP) PO SCH (09:40)
[2019-10-14] MEDS: hydrOXYzine PAMOATE 25 MG CAPSULE (FP) PO PRN ×3 (09:40→21:28)
[2019-10-14] MEDS: ACETAMINOPHEN 325 MG TABLET (FP) PO PRN (09:41)
--- NOTE | 2019-10-14 15:46 | PN ---
BHS Progress Note (SOAP) Subjective: Patient transferred from [facility]. pt transferred here from [facility]; after completing etoh detox s/p hospitalization for cardiac issues Pt denies c/o CP at this time. His of cocaine use. Objective: General: no apparent distress HEENTM: normocpehalic, PERRLA Neck: supple Heart: s1 s2 Lungs: clear ABD: +BS Neuro: CN 2-12 intact. 10/14/19 15:48 10/14/19 15:53 Vital Signs Period Temp Pulse Resp BP Sys/Lei Pulse Ox Last 24 Hr 97.6 F-98.3 F 55-81 18-20 136-144/84-94 Assessment: cocaine dependence 10/14/19 15:49 10/14/19 15:52 Plan: continue substance abuse treatment. Medications reviewed, problem list, labs, previous admissions reviewed.
[2019-10-14] MEDS: METHOCARBAMOL 500 MG TABLET PO SCH ×2 (17:27→21:22)
[2019-10-14] MEDS: THIAMINE HCL 100 MG TABLET (FP) PO SCH (21:22)
[2019-10-14] MEDS: MELATONIN 5 MG TABLETS PO PRN (21:23)
[2019-10-14] MEDS: SUVOREXANT 10 MG TABLET PO PRN (21:24)
[2019-10-15] MEDS: IBUPROFEN 400 MG TABLET (FP) PO PRN ×2 (06:30→17:06)
[2019-10-15] MEDS: METHOCARBAMOL 500 MG TABLET PO SCH ×3 (07:38→21:14)
[2019-10-15] MEDS: LISINOPRIL 10 MG TABLET (FP) PO SCH (09:43)
[2019-10-15] MEDS: ACETAMINOPHEN 325 MG TABLET (FP) PO PRN (09:45)
[2019-10-15] MEDS: PRENATAL VITAMINS W/ FOLIC ACID TABLET (FP) PO SCH (10:43)
[2019-10-15] MEDS: THIAMINE HCL 100 MG TABLET (FP) PO SCH (21:14)
[2019-10-15] MEDS: MELATONIN 5 MG TABLETS PO PRN (21:14)
[2019-10-15] MEDS: hydrOXYzine PAMOATE 25 MG CAPSULE (FP) PO PRN (21:15)
[2019-10-15] MEDS: SUVOREXANT 10 MG TABLET PO PRN (21:15)
[2019-10-16] MEDS: IBUPROFEN 400 MG TABLET (FP) PO PRN (06:10)
[2019-10-16] MEDS: METHOCARBAMOL 500 MG TABLET PO SCH ×3 (06:10→21:19)
--- NOTE | 2019-10-16 09:54 | PN ---
BHS Progress Note (SOAP) Subjective: Patient is concerned that his BP is elevated, on Prinivil, which he did not realize was a medication for BP control. Reports that he has decreased his intake of salt,coffee, and sugar. Also c/o insomnia. Objective: Physical General: no apparent distress HEENTM: PERRLA Lungs: clear Heart: s1 s2 Neuro: CN 2-12 intact. 10/16/19 09:50 10/16/19 09:54 Vital Signs (72 hours) 10/13/19 10/14/19 10/14/19 22:25 00:26 03:35 Temperature 98.3 F Pulse Rate 66 Respiratory 18 18 20 Rate Blood Pressure 144/94 10/14/19 10/14/19 10/15/19 06:57 09:11 00:25 Temperature 97.6 F Pulse Rate 55 L 81 Respiratory 18 20 Rate Blood Pressure 137/84 136/86 10/15/19 10/15/19 10/15/19 03:28 06:54 08:38 Temperature 98 F Pulse Rate 67 73 Respiratory 18 18 18 Rate Blood Pressure 145/89 147/91 10/16/19 10/16/19 10/16/19 00:29 03:33 07:02 Temperature 98.4 F Pulse Rate 65 Respiratory 18 18 18 Rate Blood Pressure 136/87 Assessment: HTN Insomnia 10/16/19 09:51 Plan: Discussed lifestyle issues that affect BP; encouraged to continue with dietary approach to HTN and follow up with PCP upon discharge. Advised patient that he was diagnosed with HTN based on his medications. Discussed the affect of abstinence on decreasing BP. Increased melatonin to 10mg, psych consult for insomnia Discussed relationship to sleep and BP
[2019-10-16] MEDS: hydrOXYzine PAMOATE 25 MG CAPSULE (FP) PO PRN (09:57)
[2019-10-16] MEDS: LISINOPRIL 10 MG TABLET (FP) PO SCH (09:57)
[2019-10-16] MEDS: PRENATAL VITAMINS W/ FOLIC ACID TABLET (FP) PO SCH (09:57)
[2019-10-16] MEDS: ACETAMINOPHEN 325 MG TABLET (FP) PO PRN (09:58)
--- NOTE | 2019-10-16 12:27 | CONSULT ---
[facility] Psychiatric Consult - Data Date of interview: 10/16/19 Admission source: 6N Identifying data: Mr Styles is a 64 years old Black male, father of a 41 years old daughter, unemployed receiving SSI, domiciled seeking detox treatment for alcohol, opioid and cocaine Substance Abuse History: Reports history of alcohol, heroin and cocaine use. Refer to addiction counselor's summary for further information Medical History: Significant for hypertension, GERD, PPD+ and herniated disc and history of anemia. Smokes 10 cigarettes daily Psychiatric History: Patient was recently seen by ticket writer on 10/10/19 while admitted to detox. Historical narrative remains consistent. Reports that his first psychiatric contact occured in 2004 when he was admitted to [facility] for 2 weeks. He said that he was diagnosed Bipolar Disorder and started on Depakote and Seroquel. Reports that his most recent outpatient psychiatric treatment was 2 years ago when he was seeing a psychiatrist at [facility] clinic and he is prescribed Abilify. He said that since he moved to the [place] 2 years ago, he has not seen any psychiatrist and has been off medications. When seen by ticket writer on 10/10/19, he was unwilling to resume any psychotropic medication and he requested only medication for insomnia. Therefore he was ordered Belsomra 10 mg/hs prn. Denies previous suicidal attempt. At present, denies experiencing psychotic, manic or depressive symptoms, S/H ideations. Patient is still unwilling to resume psychotropic medications. However, reports sleeping poorly despite taking Belsomra 10 mg/hs and requests a higher dose of Belsomra. Physical/Sexual Abuse/Trauma History: Denies history of verbal, physical or sexual abuse as well as DV relationship Additional Comment: Reports history of 2 previous arrests including one felony conviction. No parole/probation currently Mental Status Exam - Mental Status Exam Alert and Oriented to: Time, Place, Person Cognitive Function: Fair Patient Appearance: Well Groomed Mood: Hopeful, Euthymic Patient Behavior: Cooperative Speech Pattern: Clear Voice Loudness: Normal Thought Process: Intact, Goal Oriented Thought Disorder: Not Present Hallucinations: Denies Suicidal Ideation: Denies Homicidal Ideation: Denies Insight/Judgement: Fair Sleep: Poorly Appetite: Good Muscle strength/Tone: Normal Gait/Station: Normal Psychiatric Findings - Problem List ([place] 1, 2,3) (1) Bipolar disorder Current Visit: No Status: Chronic Qualifiers: Active/Remission status: remission status unspecified Qualified Code(s): F31.9 - Bipolar disorder, unspecified (2) Substance-induced sleep disorder Current Visit: No Status: Acute (3) Alcohol dependence Current Visit: Yes Status: Acute (4) Cocaine dependence Current Visit: No Status: Acute Qualifiers: Substance use status: uncomplicated Qualified Code(s): F14.20 - Cocaine dependence, uncomplicated (5) Opioid abuse Current Visit: No Status: Acute (6) Nicotine dependence Current Visit: No Status: Chronic Qualifiers: Nicotine product type: cigarettes Substance use status: uncomplicated Qualified Code(s): F17.210 - Nicotine dependence, cigarettes, uncomplicated (7) PPD positive Current Visit: No Status: Chronic (8) Anemia Current Visit: No Status: Resolved (9) GERD (gastroesophageal reflux disease) Current Visit: No Status: Chronic Qualifiers: Esophagitis presence: without esophagitis Qualified Code(s): K21.9 - Gastro -esophageal reflux disease without esophagitis (10) HTN (hypertension) Current Visit: No Status: Chronic (11) Herniated disc Current Visit: No Status: Chronic Qualifiers: Mid-cervical spinal level: unspecified - Initial Treatment Plan Initial Treatment Plan: 1) Start Belsomra 15 mg po HS prn for insomnia. 2) Continue inpatient rehabilitation
[2019-10-16] MEDS ORDERED: PT OWN MED DRAWER 7, Y5N ONE ×2 (12:46→13:28)
[2019-10-16] MEDS: MAG HYDROX/AL HYDROX/SIMETH 30 ML UNIT-DOSE CUP PO PRN (19:04)
[2019-10-16] MEDS: MELATONIN 5 MG TABLETS PO PRN (21:19)
[2019-10-16] MEDS: THIAMINE HCL 100 MG TABLET (FP) PO SCH (21:19)
[2019-10-16] MEDS: SUVOREXANT 15 MG TABLET PO PRN (21:20)
[2019-10-17] MEDS: METHOCARBAMOL 500 MG TABLET PO SCH ×3 (06:14→21:17)
[2019-10-17] MEDS: LISINOPRIL 10 MG TABLET (FP) PO SCH (10:28)
[2019-10-17] MEDS: PRENATAL VITAMINS W/ FOLIC ACID TABLET (FP) PO SCH (10:28)
[2019-10-17] MEDS: ACETAMINOPHEN 325 MG TABLET (FP) PO PRN ×2 (14:07→19:00)
[2019-10-17] MEDS: MAG HYDROX/AL HYDROX/SIMETH 30 ML UNIT-DOSE CUP PO PRN ×2 (14:08→21:17)
[2019-10-17] MEDS: MELATONIN 5 MG TABLETS PO PRN (21:15)
[2019-10-17] MEDS: THIAMINE HCL 100 MG TABLET (FP) PO SCH (21:15)
[2019-10-17] MEDS: SUVOREXANT 15 MG TABLET PO PRN (21:17)
[2019-10-18] MEDS: IBUPROFEN 400 MG TABLET (FP) PO PRN ×2 (06:40→21:35)
[2019-10-18] MEDS: METHOCARBAMOL 500 MG TABLET PO SCH ×3 (06:41→21:36)
[2019-10-18] MEDS: PRENATAL VITAMINS W/ FOLIC ACID TABLET (FP) PO SCH (10:30)
[2019-10-18] MEDS: LISINOPRIL 10 MG TABLET (FP) PO SCH (10:30)
[2019-10-18] MEDS: MAG HYDROX/AL HYDROX/SIMETH 30 ML UNIT-DOSE CUP PO PRN (20:38)
[2019-10-18] MEDS: THIAMINE HCL 100 MG TABLET (FP) PO SCH (21:33)
[2019-10-18] MEDS: SUVOREXANT 15 MG TABLET PO PRN (21:35)
[2019-10-19] MEDS: IBUPROFEN 400 MG TABLET (FP) PO PRN ×2 (05:52→21:10)
[2019-10-19] MEDS: METHOCARBAMOL 500 MG TABLET PO SCH ×3 (05:52→21:09)
[2019-10-19] MEDS: ACETAMINOPHEN 325 MG TABLET (FP) PO PRN (08:32)
[2019-10-19] MEDS: PRENATAL VITAMINS W/ FOLIC ACID TABLET (FP) PO SCH (10:19)
[2019-10-19] MEDS: LISINOPRIL 10 MG TABLET (FP) PO SCH (10:19)
--- NOTE | 2019-10-19 14:02 | PN ---
[facility] Progress Note Note: Psychiatric nurse practitioner note: Belsomra 15mg PRN HS renewed. Verbal consent given.
[2019-10-19] MEDS: MAG HYDROX/AL HYDROX/SIMETH 30 ML UNIT-DOSE CUP PO PRN (17:53)
[2019-10-19] MEDS: THIAMINE HCL 100 MG TABLET (FP) PO SCH (21:09)
[2019-10-19] MEDS: SUVOREXANT 15 MG TABLET PO PRN (21:11)
[2019-10-20] MEDS: METHOCARBAMOL 500 MG TABLET PO SCH (06:32)
[2019-10-20] MEDS: IBUPROFEN 400 MG TABLET (FP) PO PRN ×2 (06:33→21:14)
[2019-10-20] MEDS ORDERED: METHOCARBAMOL 500 MG TABLET PO PRN (08:51)
[2019-10-20] MEDS: LISINOPRIL 10 MG TABLET (FP) PO SCH (09:32)
[2019-10-20] MEDS: PRENATAL VITAMINS W/ FOLIC ACID TABLET (FP) PO SCH (09:32)
[2019-10-20] MEDS: ACETAMINOPHEN 325 MG TABLET (FP) PO PRN (09:33)
[2019-10-20] MEDS: MAG HYDROX/AL HYDROX/SIMETH 30 ML UNIT-DOSE CUP PO PRN ×2 (14:58→21:15)
[2019-10-20] MEDS: MELATONIN 5 MG TABLETS PO PRN (21:14)
[2019-10-20] MEDS: SUVOREXANT 15 MG TABLET PO PRN (21:14)
[2019-10-20] MEDS: THIAMINE HCL 100 MG TABLET (FP) PO SCH (21:15)
[2019-10-21] MEDS: MAG HYDROX/AL HYDROX/SIMETH 30 ML UNIT-DOSE CUP PO PRN ×2 (09:37→21:08)
[2019-10-21] MEDS: LISINOPRIL 10 MG TABLET (FP) PO SCH (09:38)
[2019-10-21] MEDS: PRENATAL VITAMINS W/ FOLIC ACID TABLET (FP) PO SCH (09:38)
[2019-10-21] MEDS: IBUPROFEN 400 MG TABLET (FP) PO PRN ×2 (12:51→21:09)
[2019-10-21] MEDS: MELATONIN 5 MG TABLETS PO PRN (21:07)
[2019-10-21] MEDS: THIAMINE HCL 100 MG TABLET (FP) PO SCH (21:07)
[2019-10-21] MEDS: SUVOREXANT 15 MG TABLET PO PRN (21:09)
[2019-10-22] MEDS: IBUPROFEN 400 MG TABLET (FP) PO PRN ×3 (06:02→21:20)
[2019-10-22] MEDS: PRENATAL VITAMINS W/ FOLIC ACID TABLET (FP) PO SCH (10:16)
[2019-10-22] MEDS: LISINOPRIL 10 MG TABLET (FP) PO SCH (10:16)
[2019-10-22] MEDS: THIAMINE HCL 100 MG TABLET (FP) PO SCH (21:19)
[2019-10-22] MEDS: MELATONIN 5 MG TABLETS PO PRN (21:19)
[2019-10-22] MEDS: MAG HYDROX/AL HYDROX/SIMETH 30 ML UNIT-DOSE CUP PO PRN (21:20)
[2019-10-22] MEDS: SUVOREXANT 15 MG TABLET PO PRN (21:21)
[2019-10-23] MEDS: IBUPROFEN 400 MG TABLET (FP) PO PRN (08:56)
[2019-10-23] MEDS: PRENATAL VITAMINS W/ FOLIC ACID TABLET (FP) PO SCH (10:15)
[2019-10-23] MEDS: LISINOPRIL 10 MG TABLET (FP) PO SCH (10:15)
[2019-10-23] MEDS: MELATONIN 5 MG TABLETS PO PRN (21:22)
[2019-10-23] MEDS: THIAMINE HCL 100 MG TABLET (FP) PO SCH (21:23)
[2019-10-23] MEDS: MAG HYDROX/AL HYDROX/SIMETH 30 ML UNIT-DOSE CUP PO PRN (21:27)
[2019-10-23] MEDS: SUVOREXANT 15 MG TABLET PO PRN (21:27)
[2019-10-24] MEDS: IBUPROFEN 400 MG TABLET (FP) PO PRN ×2 (06:26→13:55)
[2019-10-24 07:03] VITALS: TEMP 98.5
--- NOTE | 2019-10-24 09:44 | PN ---
[facility] Progress Note Note: Patient to be discharged on Sunday according to his care plan. Patient has a court date at 8:30 on Sunday. P/E: General: no apparent distress HEENTM: PERRLA, normocephalic Neck: supple Lungs: clear Heart: s1 s2 MSK: full weight bearing, steady gait A/P: medically stable for discharge at this time, however, final discharge note and order to be written on Sunday to ensure that there are no changes in the patient 's status. Explained to patient that a discharge order and final note could not be written at this time. Prescriptions sent to [facility] Patient to make arrangements to leave early with his counselor.
[2019-10-24] MEDS: LISINOPRIL 10 MG TABLET (FP) PO SCH (10:06)
[2019-10-24] MEDS: PRENATAL VITAMINS W/ FOLIC ACID TABLET (FP) PO SCH (10:07)
[2019-10-24 10:16] VITALS: BP 137/90; PULSE 60
--- NOTE | 2019-10-24 14:07 | DS ---
[facility] Rehab Discharge Summary - [facility] Rehab Discharge Summary Admission Date: 10/13/19 Discharge Date: 10/24/19 - History Present History: Alcohol dependence, Cocaine dependence, Opioid dependence Pertinent Past History: pt here to rehab, s/p hospitalization to telemetry for cardiac issues, cleared by cardiology w/ d/c instructions to continue Lisinopril 10 mg daily. Pt denies c/o CP at this time. - Discharge Physical Exam Vital Signs: Vital Signs Temperature 98.5 F 10/24/19 07:02 Pulse Rate 60 10/24/19 08:29 Respiratory Rate 18 10/24/19 08:29 Blood Pressure 137/90 10/24/19 08:29 O2 Sat by Pulse Oximetry (%) Pertinent Admission Physical Exam Findings: P/E: General: no apparent distress HEENTM: PERRLA, normocephalic Neck: supple Lungs: clear Heart: s1 s2 MSK: full weight bearing, steady gait - Treatment Discharge Condition: Rehabilitated safely (Medically stable for discharge. patient will obtain aftercare on his own. He is being discharged early because he has a court date on Sunday.) Hospital Course: Patient attended groups, had 1:1 with his counselor. He was seen by the psychiatric service. He was adherent to his medical regimen and his treatment plan - Medication Discharge Medications: Ambulatory Orders Folic Acid - 1 mg PO DAILY #30 tablet 10/24/19 Lisinopril [Prinivil] 10 mg PO DAILY #30 tablet 10/24/19 Multivitamins [Multivit ([facility] Formulary)] 1 tab PO DAILY #30 tab 10/24/19 Thiamine HCl [Vitamin B1 -] 100 mg PO DAILY #30 tablet 10/24/19 - Medication-Assisted Treatment (MAT) Medication-Assisted Treatment (MAT): No - Discharge Instructions Diet, activity, other medical instructions: Diet: as tolerated Activity: as tolerated Other medical instructions: Please follow up with aftercare instructions. - Follow-up Referral Minutes to complete discharge: 20 - AMA Did Patient Leave Against Medical Advice: No
== END 2019-10-24 15:05 | disposition home or self-care (01) | DRG 772 ==
LOC: YASAS 17:44 → Y3W 17:45
PROVIDERS: ADMIT Allergy & Immunology; ATTEND Allergy & Immunology
PROC: HZ42ZZZ Group Counseling for Substance Abuse Treatment, Cognitive-Behavioral (ICD-10-PCS; principal; 2019-10-13)
DX: F10.20 Alcohol dependence, uncomplicated (principal); F11.20 Opioid dependence, uncomplicated; F14.20 Cocaine dependence, uncomplicated; F17.210 Nicotine dependence, cigarettes, uncomplicated; F19.282 Other psychoactive substance dependence with psychoactive substance-induced sleep disorder; F31.9 Bipolar disorder, unspecified; I10 Essential (primary) hypertension; K21.9 Gastro-esophageal reflux disease without esophagitis; M50.220 Other cervical disc displacement, mid-cervical region, unspecified level; R76.11 Nonspecific reaction to tuberculin skin test without active tuberculosis; Z86.2 Personal history of diseases of the blood and blood-forming organs and certain disorders involving the immune mechanism

== ENCOUNTER 2022-03-26 11:53 | Inpatient (IN) | payer OTHER ==
[2022-03-26 14:32] VITALS: BMI 21.9
[2022-03-26] MEDS ORDERED: NICOTINE POLACRILEX 2 MG GUM BUC PRN (15:25)
[2022-03-26] MEDS ORDERED: LOPERAMIDE HCL 2 MG CAPSULE PO PRN (15:25)
[2022-03-26] MEDS ORDERED: ACETAMINOPHEN 325 MG TABLET (FP) PO PRN ×2 (15:25)
[2022-03-26] MEDS ORDERED: MAGNESIUM HYDROX 2400MG/30ML ORAL SUSPENSION 30 ML CUP PO PRN (15:25)
[2022-03-26] MEDS ORDERED: DICYCLOMINE HCL 10 MG CAPSULE PO PRN (15:25)
[2022-03-26] MEDS ORDERED: MAGNESIUM CITRATE 300 ML BOTTLE PO PRN (15:25)
[2022-03-26] MEDS ORDERED: IBUPROFEN 600 MG TABLET (FP) PO PRN (15:25)
[2022-03-26] MEDS ORDERED: LORazepam 1 MG TABLET PO PRN (15:25)
[2022-03-26] MEDS ORDERED: IBUPROFEN 400 MG TABLET (FP) PO PRN (15:25)
[2022-03-26] MEDS ORDERED: BENZOCAINE/MENTHOL (CHLORASEPTIC ) LOZENGE MM PRN (15:25)
[2022-03-26] MEDS ORDERED: cloNIDine HCL 0.1 MG TABLET PO PRN (15:25)
[2022-03-26] MEDS ORDERED: BISMUTH SUBSALICYLATE 524 MG/30 ML PO PRN (15:25)
[2022-03-26] MEDS ORDERED: methaDONE HCL 10 MG TABLET (FOR DETOX USE ONLY) PO ONE (15:25)
[2022-03-26] MEDS ORDERED: MAG HYDROX/AL HYDROX/SIMETH 30 ML UNIT-DOSE CUP PO PRN (15:25)
[2022-03-26] MEDS: LORazepam 2 MG TABLET PO SCH ×2 (17:58→22:14)
[2022-03-26] MEDS: THIAMINE HCL 100 MG TABLET (FP) PO SCH (22:14)
[2022-03-26] MEDS: MELATONIN 5 MG TABLETS PO SCH (22:14)
[2022-03-26] MEDS: METHOCARBAMOL 500 MG TABLET PO PRN (22:15)
[2022-03-27] MEDS: METHOCARBAMOL 500 MG TABLET PO PRN (06:25)
[2022-03-27] MEDS: LORazepam 2 MG TABLET PO SCH ×4 (06:26→22:12)
[2022-03-27] MEDS ORDERED: methaDONE HCL 10 MG TABLET (FOR DETOX USE ONLY) ONE (09:30)
[2022-03-27] MEDS: PRENATAL VITAMINS W/ FOLIC ACID TABLET (FP) PO SCH (10:06)
[2022-03-27] MEDS: LISINOPRIL 10 MG TABLET PO SCH (10:07)
[2022-03-27] MEDS: NICOTINE 7 MG/24 HOURS TOPICAL PATCH TD SCH (10:07)
[2022-03-27 10:45] LABS: HEMATOCRIT 35.3 % (35.4-49); HEMOGLOBIN 11.8 GM/dL (11.7-16.9); MCH 29.7 pg (25.7-33.7); MCHC 33.3 g/dl (32.0-35.9); MEAN CELL VOLUME 89.1 fl (80-96); MEAN PLT VOLUME 8.8 fl (7.5-11.1); PLATELET COUNT 164 10^3/uL (134-434); RBC 3.96 M/mm3 (4.00-5.60); RDW 14.9 % (11.9-15.9); WHITE BLOOD COUNT 3.5 K/mm3 (4.0-10.0)
[2022-03-27 10:51] LABS: CALCIUM 9.2 mg/dL (8.5-10.1)
[2022-03-27 10:52] LABS: ALBUMIN 3.2 g/dl (3.4-5.0); BLOOD UREA NITROGEN 9.7 mg/dL (7-18)
[2022-03-27 10:55] LABS: CREATININE 0.9 mg/dL (0.55-1.3)
[2022-03-27 10:57] LABS: BILIRUBIN,TOTAL 0.3 mg/dL (0.2-1)
[2022-03-27] MEDS: THIAMINE HCL 100 MG TABLET (FP) PO SCH (22:13)
[2022-03-27] MEDS: MELATONIN 5 MG TABLETS PO SCH (22:13)
[2022-03-28] MEDS: LORazepam 1 MG TABLET PO SCH ×4 (05:29→22:19)
[2022-03-28] MEDS: LISINOPRIL 10 MG TABLET PO SCH (09:44)
[2022-03-28] MEDS: METHOCARBAMOL 500 MG TABLET PO PRN ×2 (09:44→22:20)
[2022-03-28] MEDS: NICOTINE 7 MG/24 HOURS TOPICAL PATCH TD SCH (09:45)
[2022-03-28] MEDS: PRENATAL VITAMINS W/ FOLIC ACID TABLET (FP) PO SCH (09:45)
[2022-03-28] MEDS ORDERED: methaDONE HCL 10 MG TABLET (FOR DETOX USE ONLY) PO ONE (10:00)
[2022-03-28] MEDS: MELATONIN 5 MG TABLETS PO SCH (22:19)
[2022-03-28] MEDS: THIAMINE HCL 100 MG TABLET (FP) PO SCH (22:19)
[2022-03-29] MEDS: LORazepam 0.5 MG TABLET PO PRN ×2 (01:36→13:54)
[2022-03-29] MEDS: LORazepam 0.5 MG TABLET PO SCH ×4 (05:44→22:31)
[2022-03-29] MEDS ORDERED: methaDONE HCL 10 MG TABLET (FOR DETOX USE ONLY) ONE (08:40)
[2022-03-29] MEDS: METHOCARBAMOL 500 MG TABLET PO PRN ×2 (09:48→22:32)
[2022-03-29] MEDS: PRENATAL VITAMINS W/ FOLIC ACID TABLET (FP) PO SCH (09:48)
[2022-03-29] MEDS: LISINOPRIL 10 MG TABLET PO SCH (09:49)
[2022-03-29] MEDS: NICOTINE 7 MG/24 HOURS TOPICAL PATCH TD SCH (09:49)
[2022-03-29] MEDS: MELATONIN 5 MG TABLETS PO SCH (22:31)
[2022-03-29] MEDS: THIAMINE HCL 100 MG TABLET (FP) PO SCH (22:31)
[2022-03-30] MEDS ORDERED: LORazepam 0.5 MG TABLET PO ONE (05:00)
[2022-03-30 09:15] VITALS: BP 127/73; PULSE 71; RESP 16; TEMP 98.5
[2022-03-30] MEDS ORDERED: methaDONE HCL 10 MG TABLET (FOR DETOX USE ONLY) PO ONE (10:00)
== END 2022-03-30 10:14 | disposition home or self-care (01) | DRG 773 ==
LOC: YASAS 11:53 → Y3N 16:41
PROVIDERS: ADMIT Allergy & Immunology; ATTEND Surgery
PROC: HZ2ZZZZ Detoxification Services for Substance Abuse Treatment (ICD-10-PCS; principal; 2022-03-26)
DX: F11.23 Opioid dependence with withdrawal (principal); F10.230 Alcohol dependence with withdrawal, uncomplicated; F17.210 Nicotine dependence, cigarettes, uncomplicated; I10 Essential (primary) hypertension; K21.9 Gastro-esophageal reflux disease without esophagitis; M51.26 Other intervertebral disc displacement, lumbar region; D64.9 Anemia, unspecified; Z88.1 Allergy status to other antibiotic agents; Z86.19 Personal history of other infectious and parasitic diseases
CPT/HCPCS: 36415; 71046-TC-FY; 80053; 85027; 86593; 86780; 87811; 93005; 93010; C9803-CS; J0735; U0003; U0005

== ENCOUNTER 2022-04-15 13:28 | Inpatient (IN) | payer OTHER ==
[2022-04-15 15:26] VITALS: BMI 24.3
[2022-04-15] MEDS ORDERED: MAGNESIUM CITRATE 300 ML BOTTLE PO PRN (16:52)
[2022-04-15] MEDS ORDERED: guaiFENesin 200 MG/10 ML 10 ML UNIT-DOSE CUPS PO PRN (16:52)
[2022-04-15] MEDS ORDERED: NICOTINE 10 MG CARTRIDGE (INHALER) IH PRN (16:52)
[2022-04-15] MEDS ORDERED: LOPERAMIDE HCL 2 MG CAPSULE PO PRN (16:52)
[2022-04-15] MEDS ORDERED: P-EPHED 60MG/TRIPROLIDI 2.5MG TABLET PO PRN (16:52)
[2022-04-15] MEDS ORDERED: MAGNESIUM HYDROX 2400MG/30ML ORAL SUSPENSION 30 ML CUP PO PRN (16:52)
[2022-04-15] MEDS: THIAMINE HCL 100 MG TABLET (FP) PO SCH (21:29)
[2022-04-15] MEDS: hydrOXYzine PAMOATE 25 MG CAPSULE (FP) PO PRN (21:30)
[2022-04-15] MEDS ORDERED: MELATONIN 5 MG TABLETS PO SCH (22:00)
[2022-04-16 10:47] LABS: HEMATOCRIT 36.3 % (35.4-49); HEMOGLOBIN 12.2 GM/dL (11.7-16.9); MCH 29.7 pg (25.7-33.7); MCHC 33.6 g/dl (32.0-35.9); MEAN CELL VOLUME 88.5 fl (80-96); MEAN PLT VOLUME 8.8 fl (7.5-11.1); PLATELET COUNT 214 10^3/uL (134-434); WHITE BLOOD COUNT 4.4 K/mm3 (4.0-10.0)
[2022-04-16] MEDS: PRENATAL VITAMINS W/ FOLIC ACID TABLET (FP) PO SCH (10:52)
[2022-04-16] MEDS: LISINOPRIL 10 MG TABLET PO SCH (10:53)
[2022-04-16] MEDS: NICOTINE 7 MG/24 HOURS TOPICAL PATCH TD SCH (10:53)
[2022-04-16 11:25] LABS: ALBUMIN 3.4 g/dl (3.4-5.0); BLOOD UREA NITROGEN 7.9 mg/dL (7-18); CALCIUM 9.8 mg/dL (8.5-10.1)
[2022-04-16 11:30] LABS: BILIRUBIN,TOTAL 0.3 mg/dL (0.2-1); TOT PROT 6.9 g/dl (6.4-8.2)
[2022-04-16 12:18] LABS: SYPHILIS W/ RPR CONF REACTIVE (NONREACTIVE)
[2022-04-16] MEDS: ACETAMINOPHEN 325 MG TABLET (FP) PO PRN (15:24)
[2022-04-16] MEDS: IBUPROFEN 400 MG TABLET (FP) PO PRN (21:25)
[2022-04-16] MEDS: hydrOXYzine PAMOATE 25 MG CAPSULE (FP) PO PRN (21:26)
[2022-04-16] MEDS: QUEtiapine FUMARATE 25 MG TABLET PO PRN (21:26)
[2022-04-16] MEDS: MAG HYDROX/AL HYDROX/SIMETH 30 ML UNIT-DOSE CUP PO PRN (21:27)
[2022-04-16] MEDS: THIAMINE HCL 100 MG TABLET (FP) PO SCH (21:28)
[2022-04-17] MEDS: LISINOPRIL 10 MG TABLET PO SCH (10:11)
[2022-04-17] MEDS: PRENATAL VITAMINS W/ FOLIC ACID TABLET (FP) PO SCH (10:11)
[2022-04-17] MEDS: ACETAMINOPHEN 325 MG TABLET (FP) PO PRN ×2 (10:13→21:24)
[2022-04-17] MEDS: MAG HYDROX/AL HYDROX/SIMETH 30 ML UNIT-DOSE CUP PO PRN ×2 (10:13→20:32)
[2022-04-17] MEDS: NICOTINE 7 MG/24 HOURS TOPICAL PATCH TD SCH (10:13)
[2022-04-17 10:35] LABS: PH,URINE 5.5 (5.0-8.0); URINE APPEARANCE CLEAR; URINE BILIRUBIN NEGATIVE (NEGATIVE); URINE COLOR YELLOW; URINE GLUCOSE (UA) NEGATIVE (NEGATIVE); URINE KETONE NEGATIVE (NEGATIVE); URINE LEUK ESTERASE NEGATIVE (NEGATIVE); URINE NITRITE NEGATIVE (NEGATIVE); URINE PROTEIN NEGATIVE (NEGATIVE); URINE UROBILINOGEN 0.2 mg/dL (0.2-1.0)
[2022-04-17] MEDS ORDERED: ONDANSETRON *ODT* 4 MG TABLET SL PRN (11:41)
[2022-04-17] MEDS: METHOCARBAMOL 500 MG TABLET PO PRN ×2 (12:05→20:32)
[2022-04-17] MEDS: hydrOXYzine PAMOATE 25 MG CAPSULE (FP) PO PRN (20:32)
[2022-04-17] MEDS: THIAMINE HCL 100 MG TABLET (FP) PO SCH (21:24)
[2022-04-17] MEDS: QUEtiapine FUMARATE 25 MG TABLET PO PRN (21:26)
[2022-04-17 22:15] VITALS: RESP 18
[2022-04-18] MEDS: IBUPROFEN 400 MG TABLET (FP) PO PRN (06:46)
[2022-04-18] MEDS: METHOCARBAMOL 500 MG TABLET PO PRN ×2 (06:46→18:35)
[2022-04-18] MEDS: PRENATAL VITAMINS W/ FOLIC ACID TABLET (FP) PO SCH (09:57)
[2022-04-18] MEDS: NICOTINE 7 MG/24 HOURS TOPICAL PATCH TD SCH (09:58)
[2022-04-18] MEDS: LISINOPRIL 10 MG TABLET PO SCH (09:58)
[2022-04-18] MEDS: THIAMINE HCL 100 MG TABLET (FP) PO SCH (21:13)
[2022-04-18] MEDS: MAG HYDROX/AL HYDROX/SIMETH 30 ML UNIT-DOSE CUP PO PRN (21:13)
[2022-04-18] MEDS: ACETAMINOPHEN 325 MG TABLET (FP) PO PRN (21:13)
[2022-04-18] MEDS: QUEtiapine FUMARATE 50 MG TABLET PO PRN (21:15)
[2022-04-19] MEDS: PRENATAL VITAMINS W/ FOLIC ACID TABLET (FP) PO SCH (10:01)
[2022-04-19] MEDS: NICOTINE 7 MG/24 HOURS TOPICAL PATCH TD SCH (10:02)
[2022-04-19] MEDS: METHOCARBAMOL 500 MG TABLET PO PRN ×2 (10:03→21:05)
[2022-04-19] MEDS: hydrOXYzine PAMOATE 25 MG CAPSULE (FP) PO PRN ×2 (10:03→21:06)
[2022-04-19] MEDS: LISINOPRIL 10 MG TABLET PO SCH (10:03)
[2022-04-19 13:40] LABS: HIV INTERPRETATION NEGATIVE (NEGATIVE)
[2022-04-19] MEDS: THIAMINE HCL 100 MG TABLET (FP) PO SCH (21:05)
[2022-04-19] MEDS: QUEtiapine FUMARATE 50 MG TABLET PO PRN (21:05)
[2022-04-20] MEDS: hydrOXYzine PAMOATE 25 MG CAPSULE (FP) PO PRN ×3 (03:05→21:36)
[2022-04-20] MEDS: PRENATAL VITAMINS W/ FOLIC ACID TABLET (FP) PO SCH (10:03)
[2022-04-20] MEDS: NICOTINE 7 MG/24 HOURS TOPICAL PATCH TD SCH (10:03)
[2022-04-20] MEDS: LISINOPRIL 10 MG TABLET PO SCH (10:03)
[2022-04-20] MEDS: METHOCARBAMOL 500 MG TABLET PO PRN ×2 (10:03→21:36)
[2022-04-20] MEDS: ACETAMINOPHEN 325 MG TABLET (FP) PO PRN (13:18)
[2022-04-20] MEDS: MAG HYDROX/AL HYDROX/SIMETH 30 ML UNIT-DOSE CUP PO PRN ×2 (13:19→21:36)
[2022-04-20] MEDS: THIAMINE HCL 100 MG TABLET (FP) PO SCH (21:36)
[2022-04-20] MEDS: SUVOREXANT 10 MG TABLET PO PRN (21:36)
[2022-04-20] MEDS ORDERED: QUEtiapine FUMARATE 50 MG TABLET PO PRN (22:00)
[2022-04-21] MEDS: LISINOPRIL 10 MG TABLET PO SCH (09:58)
[2022-04-21] MEDS: PRENATAL VITAMINS W/ FOLIC ACID TABLET (FP) PO SCH (09:58)
[2022-04-21] MEDS: NICOTINE 7 MG/24 HOURS TOPICAL PATCH TD SCH (09:58)
[2022-04-21] MEDS: METHOCARBAMOL 500 MG TABLET PO PRN (09:59)
[2022-04-21] MEDS: ACETAMINOPHEN 325 MG TABLET (FP) PO PRN ×2 (11:07→19:40)
[2022-04-21] MEDS: THIAMINE HCL 100 MG TABLET (FP) PO SCH (21:43)
[2022-04-21] MEDS: SUVOREXANT 10 MG TABLET PO PRN (23:24)
[2022-04-22] MEDS: METHOCARBAMOL 500 MG TABLET PO PRN (07:24)
[2022-04-22] MEDS: NICOTINE 7 MG/24 HOURS TOPICAL PATCH TD SCH (10:38)
[2022-04-22] MEDS: PRENATAL VITAMINS W/ FOLIC ACID TABLET (FP) PO SCH (10:38)
[2022-04-22] MEDS: LISINOPRIL 10 MG TABLET PO SCH (10:38)
[2022-04-22] MEDS: ACETAMINOPHEN 325 MG TABLET (FP) PO PRN (10:39)
[2022-04-22] MEDS: THIAMINE HCL 100 MG TABLET (FP) PO SCH (23:07)
[2022-04-23] MEDS: ACETAMINOPHEN 325 MG TABLET (FP) PO PRN ×2 (06:50→18:37)
[2022-04-23] MEDS: PRENATAL VITAMINS W/ FOLIC ACID TABLET (FP) PO SCH (09:57)
[2022-04-23] MEDS: NICOTINE 7 MG/24 HOURS TOPICAL PATCH TD SCH (09:58)
[2022-04-23] MEDS: LISINOPRIL 10 MG TABLET PO SCH (09:58)
[2022-04-23] MEDS: METHOCARBAMOL 500 MG TABLET PO PRN (11:08)
[2022-04-23] MEDS ORDERED: SUVOREXANT 10 MG TABLET PO PRN (22:00)
[2022-04-23] MEDS: THIAMINE HCL 100 MG TABLET (FP) PO SCH (23:53)
[2022-04-24 07:15] VITALS: BP 132/83; PULSE 69; TEMP 98
[2022-04-24] MEDS: IBUPROFEN 400 MG TABLET (FP) PO PRN (07:45)
[2022-04-24] MEDS: LISINOPRIL 10 MG TABLET PO SCH (09:51)
[2022-04-24] MEDS: METHOCARBAMOL 500 MG TABLET PO PRN (09:51)
[2022-04-24] MEDS: PRENATAL VITAMINS W/ FOLIC ACID TABLET (FP) PO SCH (09:52)
[2022-04-24] MEDS: NICOTINE 7 MG/24 HOURS TOPICAL PATCH TD SCH (09:52)
== END 2022-04-24 10:29 | disposition home or self-care (01) | DRG 772 ==
LOC: YASAS 13:28 → Y5N 18:14 → Y3W 04-21 15:42
PROVIDERS: ADMIT Allergy & Immunology; ATTEND Psychiatry & Neurology Pain Medicine
PROC: HZ42ZZZ Group Counseling for Substance Abuse Treatment, Cognitive-Behavioral (ICD-10-PCS; principal; 2022-04-15)
DX: F11.20 Opioid dependence, uncomplicated (principal); F10.20 Alcohol dependence, uncomplicated; F14.20 Cocaine dependence, uncomplicated; F17.210 Nicotine dependence, cigarettes, uncomplicated; D64.9 Anemia, unspecified; I10 Essential (primary) hypertension; F19.282 Other psychoactive substance dependence with psychoactive substance-induced sleep disorder; F31.9 Bipolar disorder, unspecified; K12.0 Recurrent oral aphthae; Z86.19 Personal history of other infectious and parasitic diseases; Z99.89 Dependence on other enabling machines and devices; Z88.1 Allergy status to other antibiotic agents; Z56.0 Unemployment, unspecified; Z59.00 Homelessness unspecified
CPT/HCPCS: 36415; 80053; 81003; 85027; 86593; 86780; 86803; 87389; 87811; C9803-CS; U0003; U0005